=== PATIENT | male | born 1955 | race Caucasian/White ===

== ENCOUNTER 2021-04-13 07:50 | Observation (INO) | payer BC ==
[2021-04-13] MEDS ORDERED: ASPIRIN 81 MG PO STA (08:10)
[2021-04-13] MEDS ORDERED: NITROGLYCERIN OINT 1 INCH/GM PACKET TOPICAL STA (08:10)
[2021-04-13] MEDS ORDERED: LABETALOL 5 MG/ML VIAL MDV IVP STA (08:11)
[2021-04-13 08:36] LABS: Basophils % (A) 1 %; Eosinophils # (A) 0.1 k/uL (0-0.7); Eosinophils % (A) 2 %; HCT 48.1 % (39.0-53.0); HGB 16.5 gm/dL (13.0-17.5); Lymphocytes # (A) 1.6 k/uL (1.0-4.8); Lymphocytes % (A) 23 %; MCHC 34.4 g/dL (31.0-37.0); MCV 93.1 fL (80.0-100.0); Mean Platelet Volume 6.9; Monocytes # (A) 0.4 k/uL (0-1.0); Monocytes % (A) 6 %; Neutrophils # (A) 4.6 k/uL (1.3-7.7); Neutrophils % (A) 67 %; Platelet Count 358 k/uL (150-450); RBC 5.17 m/uL (4.30-5.90); RDW 13.4 % (11.5-15.5); WBC 6.9 k/uL (3.8-10.6)
[2021-04-13 08:42] LABS: ALT 40 U/L (4-49); AST 36 U/L (17-59); African American GFR (CKD) >90 (>60 ml/min/1.73 sqM); Albumin 4.8 g/dL (3.5-5.0); Alkaline Phosphatase 87 U/L (38-126); Anion Gap 11 mmol/L; Blood Urea Nitrogen 14 mg/dL (9-20); Calcium 9.7 mg/dL (8.4-10.2); Carbon Dioxide 22 mmol/L (22-30); Chloride 106 mmol/L (98-107); Glucose 132 mg/dL (74-99); Magnesium 2.1 mg/dL (1.6-2.3); Non-African American GFR(CKD) >90 (>60 ml/min/1.73 sqM); Potassium 4.5 mmol/L (3.5-5.1); Sodium 139 mmol/L (137-145); Total Bilirubin 0.6 mg/dL (0.2-1.3); Total Protein 7.7 g/dL (6.3-8.2)
--- NOTE | 2021-04-13 08:42 | XR ---
EXAMINATION TYPE: XR chest 2V DATE OF EXAM: 04/13/2021 COMPARISON: NONE TECHNIQUE: PA and lateral views submitted. HISTORY: Chest pain FINDINGS: The lungs are clear and there is no pneumothorax, pleural effusion, or focal pneumonia. Heart size normal. No overt failure. Mild hyperinflation. Arthropathy shoulders. Biapical pleural thickening. IMPRESSION: 1. No acute process.
[2021-04-13 08:45] LABS: Partial Thromboplastin Time 25.1 sec (22.0-30.0); Prothrombin Time 10.3 sec (9.0-12.0)
[2021-04-13] MEDS ORDERED: ACETAMINOPHEN TAB 500 MG TAB PO STA (09:57)
[2021-04-13] MEDS ORDERED: NITROGLYCERIN SL TABS 0.4 MG TAB SUBLINGUAL PRN (10:15)
--- NOTE | 2021-04-13 10:15 | ED ---
Chest Pain HPI - General Chief Complaint: Chest Pain Stated Complaint: Chest pain Time Seen by Provider: 04/13/21 08:02 Source: patient Mode of arrival: ambulatory Limitations: no limitations - History of Present Illness Initial Comments: This 65-year-old male presents with a complaint of some chest pain. He describes it as a midsternal tightness. He also has had some left hand tingling and numbness. He denies any radiation of the pain. He also denies any shortness of breath and cough or fever. He states that he had somewhat similar symptoms over a year ago when he had likely COVID. He had a stress test at that time which was negative. He denies any known cardiac disease. There is no leg pain or swelling or history DVT or PE. No other complaints or modifying factors. He states that the symptoms came on just this past evening. He also relates that his blood pressure was elevated today at approximately 184/97. He denies having a history of known hypertension. He does relate that he has been told that he has high cholesterol but does not take any medications for this. He does not follow up with the primary physician regularly. - Related Data Home Medications Medication Instructions Recorded Confirmed Aspirin 325 mg PO DAILY PRN 04/13/21 04/13/21 Multivitamins, Thera [Multivitamin 1 tab PO DAILY 04/13/21 04/13/21 (formulary)] [place]-3 Fatty Acids/Fish Oil [Fish 1 cap PO DAILY 04/13/21 04/13/21 Oil 1,000 mg Softgel] Zinc 50 mg PO DAILY 04/13/21 04/13/21 Allergies Allergy/AdvReac Type Severity Reaction Status Date / Time No Known Allergies Allergy Verified 04/13/21 08:42 Review of Systems ROS Statement: Those systems with pertinent positive or pertinent negative responses have been documented in the HPI. ROS Other: All systems not noted in ROS Statement are negative. Past Medical History Past Medical History: No Reported History History of Any Multi-Drug Resistant Organisms: None Reported Past Surgical History: No Surgical Hx Reported Past Psychological History: No Psychological Hx Reported Smoking Status: Never smoker Past Alcohol Use History: Occasional Past Drug Use History: None Reported General Exam - General Exam Comments Initial Comments: GENERAL: The patient is well nourished and well hydrated. VITAL SIGNS: Heart rate, blood pressure, respiratory rate reviewed as recorded in nurse's notes. EYES: Pupils are round and reactive. Extraocular movements are intact. No conjunctival / lid redness or swelling. ENT: No external evidence of injury, swelling, or ecchymosis. Airway is patent. Throat is clear. NECK: Nontender. No swelling or evidence of injury. No subcutaneous emphysema. Trachea is midline. No thyroid mass. HEART: Regular rate and rhythm. Good peripheral pulses. LUNGS/CHEST: Breath sounds clear and equal bilaterally. No rales, rhonchi, or wheezes. No ecchymosis, subcutaneous emphysema, or tenderness. ABDOMEN: Abdomen soft without tenderness. No palpable masses or organomegaly. No peritoneal signs. No abdominal wall swelling or ecchymosis. EXTREMITIES: No extremity tenderness. Normal muscle tone and function. No thoracolumbar tenderness. NEUROLOGIC: Sensation is grossly intact. Cranial nerve exam reveals face is symmetrical, tongue is midline, speech is clear. SKIN: No abrasions or ecchymosis is noted. No induration or masses noted. PSYCHIATRIC: Alert and oriented. Appropriate behavior and judgment. Limitations: no limitations Course Vital Signs 04/13/21 04/13/21 07:52 08:54 Temperature 98.1 F Pulse Rate 75 71 Respiratory 20 18 Rate Blood Pressure 160/91 146/93 O2 Sat by Pulse 98 97 Oximetry Chest Pain MDM - MDM The patient was seen and examined. All diagnostics were reviewed. The had a EKG which shows a normal sinus rhythm at a rate of 80. There is no acute ST-T wave changes identified. The NH intervals 144, QRS duration is 86, and the QTC intervals 424. The patient was placed on a funeral workers no ectopy is identified. He took an aspirin just this morning prior to arrival and therefore additional aspirin is not given. He is placed on Nitropaste as well as received labetalol 20 mg IV. His blood pressure was elevated but did come down nicely with the medications. He is feeling well on recheck. The chest x-ray does not show any acute abnormalities. The cardiac profile laboratory is all within normal limits. Is felt as though he benefit from admission to observation for further cardiac evaluation. Patient is agreeable. Case is discussed with Dr. Lemus who is agreeable with admission. Disposition Clinical Impression: Chest pain, Unstable angina, Hypertension Disposition: ADMITTED IP TO THIS HOSP Condition: Fair Is patient prescribed a controlled substance at d/c from ED?: No Referrals: None,Stated [Primary Care Provider] - 1-2 days Time of Disposition: 10:14 Decision Date: 04/13/21 Decision Time: 10:14
[2021-04-13] MEDS: ENOXAPARIN 40 MG/0.4 ML SYRINGE SQ SCH (10:38)
[2021-04-13] MEDS ORDERED: ACETAMINOPHEN TAB 325 MG TAB PO PRN ×2 (13:39→14:39)
[2021-04-13] MEDS ORDERED: NALOXONE 0.4 MG/ML 1 ML VIAL IV PRN (13:39)
--- NOTE | 2021-04-13 13:53 | ECHOF ---
Referral Reason:cp MEASUREMENTS -------- HEIGHT: 180.3 cm WEIGHT: 92.1 kg BP: RVIDd: 2.4 cm (< 3.3) IVSd: 1.1 cm (0.6 - 1.1) LVIDd: 4.4 cm (3.9 - 5.3) LVPWd: 1.1 cm (0.6 - 1.1) IVSs: 1.7 cm LVIDs: 1.9 cm LVPWs: 1.7 cm Ao Diam: 3.2 cm (2.0 - 3.7) AV Cusp: 2.3 cm (1.5 - 2.6) LA Diam: 3.2 cm (2.7 - 3.8) MV EXCURSION: 17.701 mm (> 18.000) MV EF SLOPE: 99 mm/s (70 - 150) EPSS: 0.8 cm MV E Chapin: 0.58 m/s MV DecT: 270 ms MV A [place]: 0.69 m/s MV E/A Ratio: 0.85 RAP: 5.00 mmHg RVSP: 11.86 mmHg FINDINGS -------- This was a technically good study. The left ventricular size is normal. Left ventricular wall thickness is normal. Overall left vent ricular systolic function is normal with, an EF between 55 - 60 %. The right ventricle is normal in size. The left atrial size is normal. The right atrial size is normal. Interatrial and interventricular septum intact. The aortic valve is trileaflet and appears structurally normal. The mitral valve is normal. There is trace mitral regurgitation. The tricuspid valve appears structurally normal. Trace tricuspid regurgitation present. Right trey tricular systolic pressure is normal at < 35 mmHg. There is no pulmonic regurgitation present. The aortic root size is normal. Normal inferior vena cava with normal inspiratory collapse consistent with estimated right atrial pre ssure of 5 mmHg. There is no pericardial effusion. CONCLUSIONS -------- 1. The left ventricular size is normal. 2. Left ventricular wall thickness is normal. 3. Overall left ventricular systolic function is normal with, an EF between 55 - 60 %. 4. There is trace mitral regurgitation. 5. Trace tricuspid regurgitation present. 6. There is no pericardial effusion. RETAIL INTERIOR DESIGNER: Gissel Mary RDCS
--- NOTE | 2021-04-13 14:29 | P.CRDCN ---
History of Present Illness History of present illness: HISTORY OF PRESENTING ILLNESS This is a pleasant 65-year-old male past medical history significant for previous nicotine dependence. 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 We have been asked to see in consultation for chest pain. Last night after getting home from [place] he started feeling a tight sensation in the midsternal region. It radiated out across his entire chest. It felt tight and he felt funny according to him. He checked his blood pressure and it was 180s systolic. He has not previously been diagnosed with hypertension and does not take any medications on a daily basis. He does state that in 2019 when he thinks he had Covid he went to the emergency department and at that time his blood pressure was also elevated however he has a blood pressure cuff that he checks daily at home and states that it typically runs normal. He has had a couple readings above 140 systolic but this is been under stressful situation. He is not currently taking any antihypertensives. On arrival his blood pressure was 160/91 he was given IV labetalol and current blood pressure is 124/75. He has had no further symptoms of chest discomfort. EKG reveals sinus mechanism with no acute ST or T wave abnormalities noted. Chest x-ray is negative for an acute cardiopulmonary process. Laboratory data reviewed, CBC unremarkable, sodium 139, potassium 4.5, creatinine 0.89 and magnesium 2.1. Cardiac enzymes negative 2. Echocardiogram obtained reveals preserved LV systolic function with ejection fraction 55-60%. The patient states he did undergo a stress test approximately 6 weeks ago in [place] that he states was normal. He states he walked on the treadmill for 7 minutes. REVIEW OF SYSTEMS At the time of my exam: CONSTITUTIONAL: Denies fever or chills. CARDIOVASCULAR: Denies chest pain, shortness of breath, orthopnea, PND or palpitations. RESPIRATORY: Denies cough. GASTROINTESTINAL: Denies abdominal pain, diarrhea, constipation, nausea or vomiting. MUSCULOSKELETAL: Denies myalgias. NEUROLOGIC: Denies numbness, tingling, headache or weakness. ENDOCRINE: Denies fatigue, weight change, polydipsia or polyurina. GENITOURINARY: Denies burning, hematuria or urgency with micturation. HEMATOLOGIC: Denies history of anemia or bleeding. PHYSICAL EXAMINATION CONSTITUTIONAL: No apparent distress. HEENT: Head is normocephalic. Pupils are equal, round. Sclerae anicteric. Mucous membranes of the mouth are moist. No JVD. No carotid bruit. CHEST EXAMINATION: Lungs are clear to auscultation. No chest wall tenderness is noted on palpation or with deep breathing. HEART EXAMINATION: Regular rate and rhythm. S1, S2 heard. No murmurs, gallops or rub. ABDOMEN: Soft, nontender. EXTREMITIES: 2+ peripheral pulses, no lower extremity edema and no calf tenderness. NEUROLOGIC EXAMINATION: Patient is awake, alert and oriented x3. ASSESSMENT Chest pain Hypertension Former nicotine dependence PLAN Continue to obtain serial cardiac enzymes to rule out an acute event. Increase activity and assess for further chest pain. Recommend aspirin 81 mg daily along with metoprolol 25 mg twice a day. He has been advised to check his blood pressure regularly at home. If he remains stable overnight he can likely be discharged home tomorrow morning. Follow-up in the office with Dr. Suazo next week Friday for further evaluation of chest pain. If he has further symptoms of chest discomfort he will likely pursue cardiac catheterization. Thank you kindly for this consultation. Nurse Practitioner note has been reviewed, I agree with a documented findings and plan of care. Patient was seen and examined. Past Medical History Past Medical History: No Reported History History of Any Multi-Drug Resistant Organisms: None Reported Past Surgical History: No Surgical Hx Reported Past Psychological History: No Psychological Hx Reported Smoking Status: Never smoker Past Alcohol Use History: Occasional Past Drug Use History: None Reported Medications and Allergies Home Medications Medication Instructions Recorded Confirmed Type Aspirin 325 mg PO DAILY PRN 04/13/21 04/13/21 History Multivitamins, Thera [Multivitamin 1 tab PO DAILY 04/13/21 04/13/21 History (formulary)] [place]-3 Fatty Acids/Fish Oil [Fish 1 cap PO DAILY 04/13/21 04/13/21 History Oil 1,000 mg Softgel] Zinc 50 mg PO DAILY 04/13/21 04/13/21 History Allergies Allergy/AdvReac Type Severity Reaction Status Date / Time No Known Allergies Allergy Verified 04/13/21 08:42 Physical Exam Vitals: Vital Signs Temp Pulse Resp BP Pulse Ox 04/13/21 13:55 98.1 F 62 18 126/74 97 04/13/21 12:00 62 18 126/74 97 04/13/21 11:00 65 18 97 04/13/21 10:00 67 18 146/87 97 04/13/21 09:00 71 18 97 04/13/21 08:54 71 18 146/93 97 04/13/21 07:52 98.1 F 75 20 160/91 98 Intake and Output 04/12/21 04/13/21 04/13/21 22:59 06:59 14:59 Other: Weight 92.079 kg Results 04/13/21 08:20 04/13/21 08:20 Cardiac Enzymes 04/13/21 04/13/21 04/13/21 Range/Units 08:20 08:20 11:44 AST 36 (17-59) U/L Troponin I <0.012 <0.012 (0.000-0.034) ng/mL Coagulation 04/13/21 Range/Units 08:20 PT 10.3 (9.0-12.0) sec APTT 25.1 (22.0-30.0) sec CBC 04/13/21 Range/Units 08:20 WBC 6.9 (3.8-10.6) k/uL RBC 5.17 (4.30-5.90) m/uL Hgb 16.5 (13.0-17.5) gm/dL Hct 48.1 (39.0-53.0) % Plt Count 358 (150-450) k/uL Comprehensive Metabolic Panel 04/13/21 Range/Units 08:20 Sodium 139 (137-145) mmol/L Potassium 4.5 (3.5-5.1) mmol/L Chloride 106 (98-107) mmol/L Carbon Dioxide 22 (22-30) mmol/L BUN 14 (9-20) mg/dL Creatinine 0.89 (0.66-1.25) mg/dL Glucose 132 H (74-99) mg/dL Calcium 9.7 (8.4-10.2) mg/dL AST 36 (17-59) U/L ALT 40 (4-49) U/L Alkaline Phosphatase 87 (38-126) U/L Total Protein 7.7 (6.3-8.2) g/dL Albumin 4.8 (3.5-5.0) g/dL Current Medications Generic Name Dose Route Start Last Admin Trade Name Freq PRN Reason Stop Dose Admin Acetaminophen 650 mg 04/13/21 13:39 Acetaminophen Tab 325 Mg Tab PO Q6HR PRN Mild Pain or Fever > 100.5 Aspirin 81 mg 04/14/21 09:00 Aspirin 81 Mg PO DAILY [facility] Atorvastatin Calcium 80 mg 04/13/21 21:00 Atorvastatin 80 Mg Tab PO HS [facility] Enoxaparin Sodium 40 mg 04/13/21 10:30 04/13/21 10:38 Enoxaparin 40 Mg/0.4 Ml Syringe SQ 40 mg DAILY [facility] Administration Metoprolol Tartrate 25 mg 04/13/21 21:00 Metoprolol Tartrate 25 Mg Tab PO BID [facility] Multivitamins 1 each 04/14/21 09:00 Multivitamins, Thera 1 Each Tab PO DAILY [facility] Naloxone HCl 0.2 mg 04/13/21 13:39 Naloxone 0.4 Mg/Ml 1 Ml Vial IV Q2M PRN Opioid Reversal Nitroglycerin 0.4 mg 04/13/21 10:15 Nitroglycerin Sl Tabs 0.4 Mg Tab SUBLINGUAL Q5M PRN Chest Pain Nitroglycerin 1 inch 04/13/21 13:00 Nitroglycerin Oint 1 Inch/Gm Packet TOPICAL Q6HR [facility] Zinc Sulfate 220 mg 04/14/21 09:00 Zinc Sulfate 220 Mg Cap PO DAILY [facility] Intake and Output 04/12/21 04/13/21 04/13/21 22:59 06:59 14:59 Other: Weight 92.079 kg Patient Weight 04/14/21 06:59 Weight 92.079 kg 04/13/21 08:20 04/13/21 08:20
[2021-04-13] MEDS: NITROGLYCERIN OINT 1 INCH/GM PACKET TOPICAL SCH ×3 (14:56→23:56)
--- NOTE | 2021-04-13 16:13 | P.HPIM ---
History of Present Illness H&P Date: 04/13/21 Chief Complaint: chest pressure, hypertension 65-year-old man with a medical history of prior nicotine abuse presented with chest pressure. Patient says that starting yesterday he noticed some chest pressure and took his blood pressure noticed it was very high. At the time that he had his chest pressure he took one aspirin which helped his pain, then later on that day he expanse another episode while doing some work in the kitchen. The following morning, he had another episode of chest pressure and took his blood pressure and again it was very high in the 180s. Given these constellation of symptoms, patient presented for further evaluation the emergency room to be extra careful. Patient denies sweats, nausea, vomiting, fevers, chills, palpitations, chest pain, syncope, angina, dyspnea, cough, abdominal pain, diarrhea, constipation, dysuria, dyschezia, numbness/weakness of extremity is. He does note some tingling in his left arm. Patient previously had a stress test, nuclear with exercise, which was noted to be negative for inducible ischemia. It's unclear whether this stress test was in August 2019 or 6 weeks ago or both, patient told me it was August 2019. The test was done and [facility] facility, and documentation will be obtained for review. Patient has been hemodynamically stable, hypertensive, afebrile. Troponins thus far been negative. EKG was nonischemic and in normal sinus rhythm. Patient was started on aspirin and metoprolol, as well as amlodipine for blood pressure. Review of Systems All Systems reviewed and pertinent positives and negatives noted in HPI, all other symptoms are negative Past Medical History Past Medical History: No Reported History History of Any Multi-Drug Resistant Organisms: None Reported Past Surgical History: No Surgical Hx Reported Past Psychological History: No Psychological Hx Reported Smoking Status: Never smoker Past Alcohol Use History: Occasional Past Drug Use History: None Reported Medications and Allergies Home Medications Medication Instructions Recorded Confirmed Type Aspirin 325 mg PO DAILY PRN 04/13/21 04/13/21 History Multivitamins, Thera [Multivitamin 1 tab PO DAILY 04/13/21 04/13/21 History (formulary)] [place]-3 Fatty Acids/Fish Oil [Fish 1 cap PO DAILY 04/13/21 04/13/21 History Oil 1,000 mg Softgel] Zinc 50 mg PO DAILY 04/13/21 04/13/21 History Allergies Allergy/AdvReac Type Severity Reaction Status Date / Time No Known Allergies Allergy Verified 04/13/21 08:42 Physical Exam Osteopathic Statement: *. No significant issues noted on an osteopathic structural exam other than those noted in the History and Physical/Consult. Vitals: Vital Signs Temp Pulse Resp BP Pulse Ox 04/13/21 13:55 98.1 F 62 18 126/74 97 04/13/21 12:00 62 18 126/74 97 04/13/21 11:00 65 18 97 04/13/21 10:00 67 18 146/87 97 04/13/21 09:00 71 18 97 04/13/21 08:54 71 18 146/93 97 04/13/21 07:52 98.1 F 75 20 160/91 98 Intake and Output 04/13/21 04/13/21 04/13/21 06:59 14:59 22:59 Other: # Voids 0 Weight 92.079 kg Gen: awake, alert HEENT: normocephalic, atraumatic, good hearing acuity, moist mucous membranes Resp: good air exchange, breathing comfortably with no accessory muscle use, clear to auscultation bilaterally CVS: good distal perfusion x 4, regular rate and rhythm without murmurs GI: soft, NTTP, ND : no SPT, no CVAT, alfonso catheter not present MSK: no pitting edema, no clubbing Neuro: non-focal, moving all extremities Psych: cooperative, euthymic mood Results CBC & Chem 7: 04/13/21 08:20 04/13/21 08:20 Labs: Abnormal Lab Results - Last 24 Hours (Table) 04/13/21 Range/Units 08:20 Glucose 132 H (74-99) mg/dL Assessment and Plan Assessment: Chest pressure Hypertensive urgency -Admit to observation, telemetry -Cardiology consult -Troponins of trended negative, EKG was nonischemic -Continue to monitor for chest pressure/pain as exercise/activity is increased -Blood pressure management: Amlodipine 5 mg, metoprolol 25 mg twice a day -Echocardiogram was reviewed and was normal Overweight -Diet and exercise counseling -Outpatient PCP follow-up Patient is a full code DVT prophylaxis with enoxaparin
[2021-04-13] MEDS: amLODIPine 5 MG TAB PO SCH (16:33)
[2021-04-13] MEDS ORDERED: METOPROLOL TARTRATE 25 MG TAB PO SCH (21:00)
[2021-04-13] MEDS ORDERED: ATORVASTATIN 80 MG TAB PO SCH (21:00)
[2021-04-13] MEDS: METOPROLOL TARTRATE 25 MG TAB PO SCH (21:38)
[2021-04-14] MEDS: NITROGLYCERIN OINT 1 INCH/GM PACKET TOPICAL SCH ×2 (05:23→11:08)
[2021-04-14 07:05] LABS: African American GFR (CKD) >90 (>60 ml/min/1.73 sqM); Anion Gap 7 mmol/L; Blood Urea Nitrogen 14 mg/dL (9-20); Calcium 9.4 mg/dL (8.4-10.2); Carbon Dioxide 25 mmol/L (22-30); Chloride 107 mmol/L (98-107); Glucose 114 mg/dL (74-99); Magnesium 2.3 mg/dL (1.6-2.3); Non-African American GFR(CKD) 85 (>60 ml/min/1.73 sqM); Potassium 4.8 mmol/L (3.5-5.1); Sodium 139 mmol/L (137-145)
[2021-04-14 07:36] VITALS: BP 134/71; PULSE 54; RESP 18; TEMP 97.6
[2021-04-14] MEDS: METOPROLOL TARTRATE 25 MG TAB PO SCH ×2 (07:47→07:55)
[2021-04-14] MEDS: amLODIPine 5 MG TAB PO SCH (07:48)
[2021-04-14] MEDS: ENOXAPARIN 40 MG/0.4 ML SYRINGE SQ SCH (07:48)
[2021-04-14 08:53] LABS: Basophils # (A) 0.05 X 10*3/uL (0.00-0.10); Basophils % (A) 0.7 %; Eosinophils # (A) 0.27 X 10*3/uL (0.04-0.35); Eosinophils % (A) 3.6 %; HCT 44.4 % (39.6-50.0); HGB 14.4 g/dL (13.0-17.0); Lymphocytes # (A) 2.35 X 10*3/uL (0.90-5.00); Lymphocytes % (A) 31.1 %; MCH 30.7 pg (27.0-32.0); MCHC 32.4 g/dL (32.0-37.0); MCV 94.7 fL (80.0-97.0); Mean Platelet Volume 9.5 fL (9.5-12.2); Monocytes # (A) 0.84 X 10*3/uL (0.20-1.00); Monocytes % (A) 11.1 %; Neutrophils # (A) 4.04 X 10*3/uL (1.80-7.70); Neutrophils % (A) 53.4 %; Platelet Count 288 X 10*3/uL (140-440); RBC 4.69 X 10*6/uL (4.40-5.60); RDW 13.2 % (11.5-14.5); WBC 7.56 X 10*3/uL (4.50-10.00)
[2021-04-14] MEDS ORDERED: ASPIRIN 325 MG TAB PO SCH (09:00)
[2021-04-14] MEDS ORDERED: MULTIVITAMINS, THERA 1 EACH TAB PO SCH (09:00)
[2021-04-14] MEDS ORDERED: ASPIRIN 81 MG PO SCH (09:00)
[2021-04-14] MEDS ORDERED: NON FORMULARY DRUG (Omega-3 Fatty Acids/Fish Oil [Fish Oil 1,000 Mg Softgel] 1 EACH Capsul PO SCH (09:00)
[2021-04-14] MEDS ORDERED: ZINC SULFATE 220 MG CAP PO SCH (09:00)
--- NOTE | 2021-04-14 12:16 | P.PN ---
Subjective Progress Note Date: 04/14/21 This is a pleasant 65-year-old male past medical history significant for previous nicotine dependence. 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 We have been asked to see in consultation for chest pain. evening after getting home from [place] he started feeling a tight sensation in the midsternal region. It radiated out across his entire chest. It felt tight and he felt funny according to him. He checked his blood pressure and it was 180s systolic. He has not previously been diagnosed with hypertension and does not take any medications on a daily basis. He does state that in 2018 when he thinks he had Covid he went to the emergency department and at that time his blood pressure was also elevated however he has a blood pressure cuff that he checks daily at home and states that it typically runs normal. He has had a couple readings above 140 systolic but this is been under stressful situation. He is not c urrently taking any antihypertensives. On arrival his blood pressure was 160/91 he was given IV labetalol and current blood pressure is 124/75. He has had no further symptoms of chest discomfort. EKG reveals sinus mechanism with no acute ST or T wave abnormalities noted. Chest x-ray is negative for an acute cardiopulmonary process. Laboratory data reviewed, CBC unremarkable, sodium 139, potassium 4.5, creatinine 0.89 and magnesium 2.1. Cardiac enzymes negative 2. Echocardiogram obtained reveals preserved LV systolic function with ejection fraction 55-60%. The patient states he did undergo a stress test approximately 6 weeks ago in [place] that he states was normal. He states he walked on the treadmill for 7 minutes. 04/14/2021 Patient was seen and examined resting completely in bed. He's been initiated on amlodipine 5 mg by mouth daily, aspirin 81 mg daily, atorvastatin 80 mg by mouth daily at bedtime and metoprolol 25 mg by mouth twice a day. His morning dose of metoprolol was held by nursing staff due to heart rate in the 50s. Upon examination the patient is feeling well. He's had no further complaints of chest discomfort. Blood pressure is much better controlled in the 130s. Objective - Vital Signs Vital signs: Vital Signs Temp 97.6 F 04/14/21 07:35 Pulse 54 L 04/14/21 07:35 Resp 18 04/14/21 07:35 BP 134/71 04/14/21 07:35 Pulse Ox 97 04/14/21 07:35 Intake & Output 04/13/21 04/14/21 04/14/21 18:59 06:59 18:59 Weight 92.079 kg Other: Voiding Method Toilet Toilet Toilet # Voids 0 1 - Exam PHYSICAL EXAMINATION: HEENT: Head is atraumatic, normocephalic. Pupils equal, round. Neck is supple. There is no elevated jugular venous pressure. HEART EXAMINATION: Heart sounds regular, S1 and S2 normal. No murmur or gallop heard. CHEST EXAMINATION: Lungs are clear to auscultation and precussion. No chest wall tenderness is noted on palpation or with deep breathing. ABDOMEN: Soft, nontender. Bowel sounds are heard. No organomegaly noted. EXTREMITIES: 2+ peripheral pulses with no evidence of peripheral edema and no calf tenderness noted. NEUROLOGIC patient is awake, alert and oriented x3. . - Labs CBC & Chem 7: 04/14/21 06:20 04/14/21 06:20 Labs: Abnormal Lab Results - Last 24 Hours (Table) 04/14/21 Range/Units 06:20 Glucose 114 H (74-99) mg/dL Assessment and Plan Assessment: #1 symptoms of chest tightness, acute coronary event has been ruled out, troponins have been negative 3. #2 hypertension #3 hyperlipidemia #4 former nicotine dependence Plan: From cardiology's perspective medications were reviewed we will decrease metoprolol to 12.5 mg by mouth twice a day. Continue atorvastatin, aspirin and amlodipine. From our standpoint the patient may be discharged home and follow- up with Dr. CHARLI Suazo on April 20 in the office. The above dictated assessment and findings were discussed with signing physician. The impression and plan of care have been directed as dictated. Portia Smith, Nurse Practitioner, acting as scribe for signing physician.
--- NOTE | 2021-04-14 14:41 | P.DS ---
Providers Date of admission: 04/13/21 10:15 Expected date of discharge: 04/14/21 Attending physician: Suleman Max Consults: 04/13/21 10:15 Consult Physician Urgent Consulting Provider: Leonel Moralez Consult Reason/Comments: cp, htn Do you want consulting provider notified?: Yes Primary care physician: Stated None Hospital Course: Chest pressure Hypertensive urgency -Admitted to observation, telemetry. Cardiology consulted. Trops were negative, EKG non-ischemic. Echo was normal. BP was managed with amlodipine and metoprolol. Pt was started on statin. He was d/c'd home with instructions to f/u with PCP and cardiology. BPs at discharge were much better controlled, in the 130s/80s. Overweight -Diet and exercise counseling given -Outpatient PCP follow-up advised Assessment: Gen: awake, alert HEENT: normocephalic, atraumatic, good hearing acuity, moist mucous membranes Resp: good air exchange, breathing comfortably with no accessory muscle use CVS: good distal perfusion x 4, GI: soft, NTTP, ND : no SPT, no CVAT, alfonso catheter not present MSK: no pitting edema, no clubbing Neuro: non-focal, moving all extremities Psych: cooperative, euthymic mood Patient Condition at Discharge: Good Plan - Discharge Summary Discharge Rx Participant: No New Discharge Prescriptions: New amLODIPine [Norvasc] 5 mg PO DAILY #30 tab Atorvastatin [Lipitor] 80 mg PO HS #30 tab Metoprolol Tartrate [Lopressor] 12.5 mg PO BID #60 tab Continue Roby-3 Fatty Acids/Fish Oil [Fish Oil 1,000 mg Softgel] 1 cap PO DAILY Zinc 50 mg PO DAILY Multivitamins, Thera [Multivitamin (formulary)] 1 tab PO DAILY Changed Aspirin 81 mg PO DAILY #30 Discharge Medication List Multivitamins, Thera [Multivitamin (formulary)] 1 tab PO DAILY 04/13/21 [History] Roby-3 Fatty Acids/Fish Oil [Fish Oil 1,000 mg Softgel] 1 cap PO DAILY 04/13/21 [History] Zinc 50 mg PO DAILY 04/13/21 [History] Aspirin 81 mg PO DAILY #30 04/14/21 [Rx] Atorvastatin [Lipitor] 80 mg PO HS #30 tab 04/14/21 [Rx] Metoprolol Tartrate [Lopressor] 12.5 mg PO BID #60 tab 04/14/21 [Rx] amLODIPine [Norvasc] 5 mg PO DAILY #30 tab 04/14/21 [Rx] Follow up Appointment(s)/Referral(s): Agustin Suazo MD [STAFF PHYSICIAN] - 04/20/21 8:45 am None,Stated [Primary Care Provider] - 1-2 days Patient Instructions/Handouts: Chest Pain (DC) Discharge Disposition: HOME SELF-CARE
[2021-04-14 15:30] LABS: Chol/HDL Ratio 5.31; Cholesterol 186 mg/dL (0-200); LDL Cholesterol,Calculated 121.6 mg/dL (0.0-131.0)
[2021-04-14] MEDS ORDERED: METOPROLOL TARTRATE 12.5 MG TAB PO SCH (21:00)
== END 2021-04-14 13:30 | disposition home or self-care (01) ==
LOC: EC 07:50 → 6NMEDSUR 10:15
PROVIDERS: ADMIT Internal Medicine; ATTEND Internal Medicine
DX: R07.89 Other chest pain (principal); I16.0 Hypertensive urgency; I10 Essential (primary) hypertension; E78.5 Hyperlipidemia, unspecified; M19.012 Primary osteoarthritis, left shoulder; M19.011 Primary osteoarthritis, right shoulder; R20.2 Paresthesia of skin; R20.0 Anesthesia of skin; E78.00 Pure hypercholesterolemia, unspecified; E66.3 Overweight; Z68.28 Body mass index [BMI] 28.0-28.9, adult; Z79.82 Long term (current) use of aspirin; Z79.899 Other long term (current) drug therapy; Z87.891 Personal history of nicotine dependence; Z71.3 Dietary counseling and surveillance
CPT/HCPCS: 96372; 96374; 99285; 36415; 93005; 93306; 80061; 80053; 80048; 83735 ×2; 84484; 85025 ×2; 85610; 85730; 71046; G0378 ×2; J1650

== ENCOUNTER 2021-11-18 21:21 | Emergency (ER) | payer BC ==
[2021-11-18 21:32] VITALS: TEMP 98.9
[2021-11-18 22:11] LABS: Basophils % (A) 0 %; Eosinophils # (A) 0.1 k/uL (0-0.7); Eosinophils % (A) 1 %; HCT 46.4 % (39.0-53.0); HGB 15.5 gm/dL (13.0-17.5); Lymphocytes # (A) 2.3 k/uL (1.0-4.8); Lymphocytes % (A) 28 %; MCH 30.8 pg (25.0-35.0); MCHC 33.4 g/dL (31.0-37.0); MCV 92.2 fL (80.0-100.0); Monocytes # (A) 0.4 k/uL (0-1.0); Monocytes % (A) 5 %; Neutrophils # (A) 5.1 k/uL (1.3-7.7); Neutrophils % (A) 64 %; Platelet Count 312 k/uL (150-450); RBC 5.03 m/uL (4.30-5.90); RDW 13.3 % (11.5-15.5); WBC 8.1 k/uL (3.8-10.6)
--- NOTE | 2021-11-18 22:14 | XR ---
EXAMINATION TYPE: XR chest 2V DATE OF EXAM: 11/18/2021 COMPARISON: 04/13/2021 HISTORY: Chest pain TECHNIQUE: FINDINGS: Heart is normal. Lungs are clear. Diaphragm is normal. There are chest leads. Bony thorax i s intact. IMPRESSION: Normal chest. No change
[2021-11-18 22:22] LABS: ALT 29 U/L (4-49); AST 29 U/L (17-59); African American GFR (CKD) >90 (>60 ml/min/1.73 sqM); Albumin 4.5 g/dL (3.5-5.0); Alkaline Phosphatase 68 U/L (38-126); Anion Gap 12 mmol/L; Blood Urea Nitrogen 20 mg/dL (9-20); Calcium 9.2 mg/dL (8.4-10.2); Carbon Dioxide 22 mmol/L (22-30); Chloride 105 mmol/L (98-107); Glucose 123 mg/dL (74-99); Lipase 49 U/L (23-300); Magnesium 2.2 mg/dL (1.6-2.3); Non-African American GFR(CKD) 85 (>60 ml/min/1.73 sqM); Potassium 4.4 mmol/L (3.5-5.1); Sodium 139 mmol/L (137-145); Total Bilirubin 0.6 mg/dL (0.2-1.3); Total Protein 7.8 g/dL (6.3-8.2)
--- NOTE | 2021-11-18 22:24 | ED ---
Chest Pain HPI - General Chief Complaint: Chest Pain Stated Complaint: Chest Pain, Left Hand Numbness Time Seen by Provider: 11/18/21 21:42 Source: patient, RN notes reviewed, old records reviewed Mode of arrival: wheelchair Limitations: no limitations - History of Present Illness Initial Comments: This is a 66-year-old male to the ER today. Patient presents today for evaluation of chest pain. Patient does suffer from medical history of high blood pressure. He has no traumas no travel history no sick contacts no fevers no cough no congestion. Patient Dese with chest pain left arm left leg pain that started prior to arrival. Patient did take his blood pressure was elevated made her concerned and comes DF for evaluation MD Complaint: chest pain -: hour(s) Onset: during rest Pain Location: substernal, left chest Pain Radiation: LUE Severity: moderate Severity scale (1-10): 4 Quality: tightness Consistency: constant Improves With: nothing Worsens With: nothing Anginal Symptoms: other (none) Other Symptoms: other (none) Treatments Prior to Arrival: none - Related Data Home Medications Medication Instructions Recorded Confirmed Multivitamins, Thera [Multivitamin 1 tab PO DAILY 04/13/21 04/13/21 (formulary)] [place]-3 Fatty Acids/Fish Oil [Fish 1 cap PO DAILY 04/13/21 04/13/21 Oil 1,000 mg Softgel] Zinc 50 mg PO DAILY 04/13/21 04/13/21 Previous Rx's Medication Instructions Recorded Aspirin 81 mg PO DAILY #30 04/14/21 Atorvastatin [Lipitor] 80 mg PO HS #30 tab 04/14/21 Metoprolol Tartrate [Lopressor] 12.5 mg PO BID #60 tab 04/14/21 amLODIPine [Norvasc] 5 mg PO DAILY #30 tab 04/14/21 Allergies Allergy/AdvReac Type Severity Reaction Status Date / Time No Known Allergies Allergy Verified 11/18/21 21:32 Review of Systems ROS Statement: Those systems with pertinent positive or pertinent negative responses have been documented in the HPI. ROS Other: All systems not noted in ROS Statement are negative. EKG Findings - EKG Comments: EKG Findings:: EKG shows sinus bradycardia 57 IA 141 QRS 92 QTC 392 Past Medical History Past Medical History: Hypertension History of Any Multi-Drug Resistant Organisms: None Reported Past Surgical History: No Surgical Hx Reported Past Psychological History: No Psychological Hx Reported Smoking Status: Never smoker Past Alcohol Use History: Occasional Past Drug Use History: None Reported General Exam General appearance: alert, in no apparent distress Head exam: Present: atraumatic, normocephalic, normal inspection Eye exam: Present: normal appearance, PERRL, EOMI. Absent: scleral icterus, conjunctival injection, periorbital swelling ENT exam: Present: normal exam, mucous membranes moist Neck exam: Present: normal inspection. Absent: tenderness, meningismus, lymphadenopathy Respiratory exam: Present: normal lung sounds bilaterally. Absent: respiratory distress, wheezes, rales, rhonchi, stridor Cardiovascular Exam: Present: regular rate, normal rhythm, normal heart sounds. Absent: systolic murmur, diastolic murmur, rubs, gallop, clicks GI/Abdominal exam: Present: soft, normal bowel sounds. Absent: distended, tenderness, guarding, rebound, rigid Extremities exam: Present: normal inspection, full ROM, normal capillary refill. Absent: tenderness, pedal edema, joint swelling, calf tenderness Back exam: Present: normal inspection Neurological exam: Present: alert, oriented X3, CN II-XII intact Psychiatric exam: Present: normal affect, normal mood Skin exam: Present: warm, dry, intact, normal color. Absent: rash Course Vital Signs 11/18/21 11/18/21 11/18/21 21:29 22:00 23:00 Temperature 98.9 F Pulse Rate 65 67 52 L Respiratory 18 16 16 Rate Blood Pressure 158/90 165/93 163/92 O2 Sat by Pulse 98 Oximetry 11/19/21 00:17 Temperature Pulse Rate 64 Respiratory 16 Rate Blood Pressure 145/84 O2 Sat by Pulse 95 Oximetry - Reevaluation(s) Reevaluation #1: 11/18/21 Medical record is reviewed Patient symptoms are improved here in the emergency department Patient informed results and questions answered Reevaluation #2: Studies Chest x-rays negative for acute disease Chest Pain MDM - MDM 66 male presented with chest pain atypical chest pain tonight. Patient has no current chest pain here in the ER feeling improved testing is normal patient can be discharged home Disposition Clinical Impression: Chest pain, Hypertension, Atypical chest pain Disposition: HOME SELF-CARE Condition: Good Instructions (If sedation given, give patient instructions): Chest Pain (ED) Is patient prescribed a controlled substance at d/c from ED?: No Referrals: None,Stated [Primary Care Provider] - 1-2 days
[2021-11-18 22:27] LABS: INR 0.9 (<1.2); Partial Thromboplastin Time 24.9 sec (22.0-30.0)
[2021-11-18 23:39] VITALS: RESP 16
[2021-11-19 00:22] VITALS: BP 145/84; PULSE 64
== END 2021-11-19 00:21 | disposition home or self-care (01) ==
LOC: EC 21:21
DX: R07.89 Other chest pain (principal); I10 Essential (primary) hypertension
CPT/HCPCS: 36415; 71046; 80053; 83690; 83735; 83880; 84484; 85025; 85610; 85730; 93005; 99285

== ENCOUNTER → 2022-06-06 | Outpatient (CLI) | payer BC | END | disposition home or self-care (01) | LOC: LABWHC1 14:58 | PROVIDERS: ATTEND Internal Medicine Interventional Cardiology | DX: Z53.9 Procedure and treatment not carried out, unspecified reason (principal) ==

== ENCOUNTER 2023-11-06 04:31 | Inpatient (IN) | payer BC, MEDICARE ==
--- NOTE | 2023-11-06 04:57 | ED ---
General Adult HPI - General Source: patient Mode of arrival: ambulatory <Sue Pedroza - Last Filed: 11/06/23 05:29> <Stevo Long - Last Filed: 11/06/23 08:43> - General Chief complaint: Neuro Symptoms/Deficit Stated complaint: left sided pain and numbness Time Seen by Provider: 11/06/23 04:41 - History of Present Illness Initial comments: Benja is a pleasant 68-year-old gentleman who presents to the ER today for evaluation of multiple complaints. Patient states that he is currently being treated for a sinus infection. Last night he started Flonase for the first time he states that because of the sinus infection he has had some facial swelling but has otherwise been doing well. Patient states that yesterday evening he was doing prayers and he developed some numbness and tingling in his left arm he thought it might be a pinched nerve or due to position he did not think too much of it he then went to bed. Patient states he woke up at 3 AM been laying on his left side he noted that he was very sweaty but not hot or febrile. He felt like his left leg was little painful and may be tingling in the foot. Patient c hecked his blood pressure and heart rate noted that he was mildly hypertensive and his heart rate was up from his typical patient states that his systolic was in the 160s and his rate was in the 80s and this is high for him. With all the symptoms going on patient became concerned and decided to come to the ER for evaluation. She reports no headache, no vision changes. No trouble with speaking or swallowing. (Sue Pedroza) - Related Data Home Medications Medication Instructions Recorded Confirmed Multivitamins, Thera [Multivitamin 1 tab PO DAILY 04/13/21 04/13/21 (formulary)] [place]-3 Fatty Acids/Fish Oil [Fish 1 cap PO DAILY 04/13/21 04/13/21 Oil 1,000 mg Softgel] Zinc 50 mg PO DAILY 04/13/21 04/13/21 Previous Rx's Medication Instructions Recorded Aspirin 81 mg PO DAILY #30 04/14/21 Atorvastatin [Lipitor] 80 mg PO HS #30 tab 04/14/21 Metoprolol Tartrate [Lopressor] 12.5 mg PO BID #60 tab 04/14/21 amLODIPine [Norvasc] 5 mg PO DAILY #30 tab 04/14/21 Allergies Allergy/AdvReac Type Severity Reaction Status Date / Time No Known Allergies Allergy Verified 11/06/23 04:50 Review of Systems ROS Other: All systems not noted in ROS Statement are negative. <Sue Pedroza P - Last Filed: 11/06/23 05:29> ROS Other: All systems not noted in ROS Statement are negative. <Stevo Long D - Last Filed: 11/06/23 08:43> ROS Statement: Those systems with pertinent positive or pertinent negative responses have been documented in the HPI. Past Medical History Past Medical History: Hypertension History of Any Multi-Drug Resistant Organisms: None Reported Past Surgical History: No Surgical Hx Reported Past Psychological History: No Psychological Hx Reported Smoking Status: Never smoker Past Alcohol Use History: Occasional Past Drug Use History: None Reported <Sue Pedroza P - Last Filed: 11/06/23 05:29> General Exam <Sue Pedroza P - Last Filed: 11/06/23 05:29> - General Exam Comments Initial Comments: Physical Exam GENERAL: Patient is well-developed and well-nourished. Patient is nontoxic and well-hydrated and is in no distress. HENT: Normocephalic, Atraumatic. EYES: PERRL, EOMI PULMONARY: Unlabored respirations. No audible rales rhonchi or wheezing was noted. CARDIOVASCULAR: There is a regular rate and rhythm without any murmurs gallops or rubs. ABDOMEN: Soft and nontender with normal bowel sounds. SKIN: Skin is clear with no lesions or rashes and otherwise unremarkable. : Deferred NEUROLOGIC: Patient is alert and oriented x3. Moving all extremities spontaneously MUSCULOSKELETAL: Normal extremities with adequate strength and full range of motion. No lower extremity swelling or edema. No calf tenderness. PSYCHIATRIC: Normal psychiatric evaluation. NIH Stroke Scale/Score (NIHSS) RESULT SUMMARY: 1 points NIH Stroke Scale INPUTS: 1A: Level of consciousness > 0 = Alert; keenly responsive 1B: Ask month and age > 0 = Both questions right 1C: 'Blink eyes' & 'squeeze hands' > 0 = Performs both tasks 2: Horizontal extraocular movements > 0 = Normal 3: Visual lord > 0 = No visual loss 4: Facial palsy > 0 = Normal symmetry 5A: Left arm motor drift > 0 = No drift for 10 seconds 5B: Right arm motor drift > 0 = No drift for 10 seconds 6A: Left leg motor drift > 0 = No drift for 5 seconds 6B: Right leg motor drift > 0 = No drift for 5 seconds 7: Limb Ataxia > 0 = No ataxia 8: Sensation > 1 = Mild-moderate loss: less sharp/more dull 9: Language/aphasia > 0 = Normal; no aphasia 10: Dysarthria > 0 = Normal 11: Extinction/inattention > 0 = No abnormality (Sue Pedroza) Course Vital Signs 11/06/23 11/06/23 11/06/23 04:46 06:10 08:37 Temperature 98.5 F 98.2 F Pulse Rate 74 70 67 Respiratory 18 18 18 Rate Blood Pressure 139/78 148/70 136/86 O2 Sat by Pulse 99 100 96 Oximetry EKG Findings - EKG Comments: EKG Findings:: EKG was obtained due to prior stroke workup, EKG was obtained at 5:25 AM rate is 64 rhythm is sinus normal axis normal intervals SC 160 QRS 90 QTc [address] elevations or depressions no evidence of ischemia infarction or pathologic arrhythmia <Sue Pedroza P - Last Filed: 11/06/23 05:29> Medical Decision Making <Sue Pedroza - Last Filed: 11/06/23 05:29> - Lab Data Result diagrams: 11/06/23 05:21 11/06/23 05:21 <Stevo Long D - Last Filed: 11/06/23 08:43> - Medical Decision Making Was pt. sent in by a medical professional or institution (, PA, SECOND CLASS WELDER, urgent care, hospital, or assisted...) When possible be specific @ -[No] Did you speak to anyone other than the patient for history (EMS, parent, family, police, friend...)? What history was obtained from this source @ -[No] Did you review nursing and triage notes (agree or disagree)? Why? @ -[I reviewed and agree with nursing and triage notes] Were old charts reviewed (outside hosp., previous admission, EMS record, old EKG, old radiological studies, urgent care reports/EKG's, assisted records)? Report findings @ -[No old charts were reviewed] Differential Diagnosis (chest pain, altered mental status, abdominal pain women, abdominal pain men, vaginal bleeding, weakness, fever, dyspnea, syncope, headache, dizziness, GI bleed, back pain, seizure, CVA, palpatations, mental health)? @ -[not applicable] EKG interpreted by me (3pts min.). @ -[As above] X-rays interpreted by me (1pt min.). @ -[None done] CT interpreted by me (1pt min.). @ -[None done] U/S interpreted by me (1pt. min.). @ -[None done] What testing was considered but not performed or refused? (CT, X-rays, U/S, labs)? Why? @ -[None] What meds were considered but not given or refused? Why? @ -[None] Did you discuss the management of the patient with other professionals (professionals i.e. , PA, SECOND CLASS WELDER, lab, RT, psych nurse, social worker school, trimmer operator three knife, teacher, trust officer, correctional case records supervisor)? Give summary @ -[No] Was smoking cessation discussed for >3mins.? @ -[No] Was critical care preformed (if so, how long)? @ -[No] Were there social determinants of health that impacted care today? How? (Homelessness, low income, unemployed, alcoholism, drug addiction, transportation, low edu. Level, literacy, decrease access to med. care, long-term, rehab)? @ -[No] Was there de-escalation of care discussed even if they declined (Discuss DNR or withdrawal of care, Hospice)? DNR status @ -[No] What co-morbidities impacted this encounter? (DM, HTN, Smoking, COPD, CAD, Cancer, CVA, ARF, Chemo, Hep., AIDS, mental health diagnosis, sleep apnea, morbid obesity)? @ -[None] Was patient admitted / discharged? Hospital course, mention meds given and route, prescriptions, significant lab abnormalities, going to OR and other pertinent info. @ -[hospital course] Undiagnosed new problem with uncertain prognosis? @ -[No] Drug Therapy requiring intensive monitoring for toxicity (Heparin, Nitro, Insulin, Cardizem)? @ -[No] Were any procedures done? @ -[No] Diagnosis/symptom? @ -[default] Acute, or Chronic, or Acute on Chronic? @ -[default] Uncomplicated (without systemic symptoms) or Complicated (systemic symptoms)? @ -[default] Side effects of treatment? @ -[No] Exacerbation, Progression, or Severe Exacerbation? @ -[No] Poses a threat to life or bodily function? How? (Chest pain, [place], [place], pneumonia, PE, COPD, DKA, ARF, appy, cholecystitis, CVA, Diverticulitis, Homicidal, Suicidal, threat to staff... and all critical care pts) @ -[No] (Sue Pedroza) 68-year-old male presents to the ER for left-sided sensory deficit. Patient care signed out to me by previous shift physician for follow-up of pending CT imaging. CT imaging was negative for acute intracranial process. There does appear to be complete opacification of the left sinuses.. Patient reevaluated bedside states that he still having some paresthesias to the left upper extremity. disposition options were discussed with patient. It is recommended that he be admitted with consultation to neurology. Case discussed with hospitalist who was concerned about cerebral sinus venous thrombosis. CT angio was ordered per request by hospitalist. Radiology refused to do imaging given that he already had contrast exposure from the sinus scan. I did speak with neurology for appropriateness of admitting patient here in emergency department despite imaging studies not performed for rule out of venous sinus thrombosis. Dr. Bianchi did state that given patient's clinical presentation and he is amenable for hospital admission here. Patient started on Unasyn for sinus infection and given 1 dose of aspirin (Stevo Long) - Lab Data Lab Results 11/06/23 11/06/23 11/06/23 Range/Units 05:21 05:21 05:21 WBC 6.2 (3.8-10.6) k/uL RBC 4.48 (4.30-5.90) m/uL Hgb 14.1 (13.0-17.5) gm/dL Hct 41.4 (39.0-53.0) % MCV 92.6 (80.0-100.0) fL MCH 31.5 (25.0-35.0) pg MCHC 34.0 (31.0-37.0) g/dL RDW 13.2 (11.5-15.5) % Plt Count 345 (150-450) k/uL MPV 7.6 Neutrophils % 52 % Lymphocytes % 34 % Monocytes % 8 % Eosinophils % 3 % Basophils % 1 % Neutrophils # 3.2 (1.3-7.7) k/uL Lymphocytes # 2.1 (1.0-4.8) k/uL Monocytes # 0.5 (0-1.0) k/uL Eosinophils # 0.2 (0-0.7) k/uL Basophils # 0.0 (0-0.2) k/uL PT 10.2 (10.0-12.5) sec INR 0.9 (<1.2) APTT 25.5 (22.0-30.0) sec Sodium 140 (137-145) mmol/L Potassium 4.1 (3.5-5.1) mmol/L Chloride 110 H (98-107) mmol/L Carbon Dioxide 19 L (22-30) mmol/L Anion Gap 11 mmol/L BUN 20 (9-20) mg/dL Creatinine 0.91 (0.66-1.25) mg/dL Est GFR (CKD-EPI)AfAm >90 (>60 ml/min/1.73 sqM) Est GFR (CKD-EPI)NonAf 86 (>60 ml/min/1.73 sqM) Glucose 117 H (74-99) mg/dL Calcium 8.9 (8.4-10.2) mg/dL Total Bilirubin 0.5 (0.2-1.3) mg/dL AST 30 (17-59) U/L ALT 23 (4-49) U/L Alkaline Phosphatase 86 (38-126) U/L Creatine Kinase 149 (55-170) U/L Total Protein 7.0 (6.3-8.2) g/dL Albumin 4.0 (3.5-5.0) g/dL Disposition <Sue Pedroza P - Last Filed: 11/06/23 05:29> Decision Time: 08:43 <Stevo Long - Last Filed: 11/06/23 08:43> Clinical Impression: Focal motor deficit Disposition: ADMITTED IP TO THIS [facility] Condition: Fair Referrals: Orville Brown MD [Primary Care Provider] - 1-2 days
[2023-11-06 05:40] LABS: Basophils % (A) 1 %; Eosinophils # (A) 0.2 k/uL (0-0.7); Eosinophils % (A) 3 %; HCT 41.4 % (39.0-53.0); HGB 14.1 gm/dL (13.0-17.5); Lymphocytes # (A) 2.1 k/uL (1.0-4.8); Lymphocytes % (A) 34 %; MCH 31.5 pg (25.0-35.0); MCV 92.6 fL (80.0-100.0); Mean Platelet Volume 7.6; Monocytes # (A) 0.5 k/uL (0-1.0); Monocytes % (A) 8 %; Neutrophils # (A) 3.2 k/uL (1.3-7.7); Neutrophils % (A) 52 %; Platelet Count 345 k/uL (150-450); RBC 4.48 m/uL (4.30-5.90); RDW 13.2 % (11.5-15.5); WBC 6.2 k/uL (3.8-10.6)
[2023-11-06] MEDS: SODIUM CHLORIDE 0.9% 1,000 ML IV STA (05:46)
[2023-11-06 06:18] LABS: ALT 23 U/L (4-49); AST 30 U/L (17-59); African American GFR (CKD) >90 (>60 ml/min/1.73 sqM); Alkaline Phosphatase 86 U/L (38-126); Anion Gap 11 mmol/L; Blood Urea Nitrogen 20 mg/dL (9-20); Calcium 8.9 mg/dL (8.4-10.2); Carbon Dioxide 19 mmol/L (22-30); Chloride 110 mmol/L (98-107); Creatine Kinase 149 U/L (55-170); Glucose 117 mg/dL (74-99); Non-African American GFR(CKD) 86 (>60 ml/min/1.73 sqM); Potassium 4.1 mmol/L (3.5-5.1); Sodium 140 mmol/L (137-145); Total Bilirubin 0.5 mg/dL (0.2-1.3)
[2023-11-06 06:27] LABS: INR 0.9 (<1.2); Partial Thromboplastin Time 25.5 sec (22.0-30.0); Prothrombin Time 10.2 sec (10.0-12.5)
--- NOTE | 2023-11-06 07:26 | XR ---
EXAMINATION TYPE: XR chest 2V DATE OF EXAM: 11/06/2023 6:53 AM CLINICAL INDICATION:Male, 68 years old with history of altered mental status; [facility] COMPARISON: Chest radiographs from 11/18/2021. TECHNIQUE: XR chest 2V Frontal and lateral views of the chest. FINDINGS: Lungs/Pleura: There is no evidence of pleural effusion, focal consolidation, or pneumothorax. Pulmonary vascularity: Unremarkable. Heart/mediastinum: Cardiomediastinal silhouette is unremarkable. Musculoskeletal: No acute osseous pathology. Other findings: None IMPRESSION: No acute cardiopulmonary disease/process.
--- NOTE | 2023-11-06 07:31 | CT ---
EXAMINATION TYPE: CT brain wo con, CT sinus w con CT DLP: 1095.2 (accession [id number]), 1527.4 (accession [id number]) mGycm, Automated exposure control fo r dose reduction was used. DATE OF EXAM: 11/06/2023 6:51 AM COMPARISON: None. CLINICAL INDICATION:Male, 68 years old with history of Neuro deficit, acute, stroke suspected, Left s ided numbness and tingling, facial swelling TECHNIQUE: Brain: Axial CT images of the brain were obtained with coronal and sagittal reformats created and rev iewed. Axial imaging of the sinuses with sagittal and coronal reformats. Contrast used: None. Oral contrast used: None. FINDINGS: Brain: Extra-axial spaces: No abnormal extra-axial fluid collections. Ventricular system: Within normal limits Cerebral parenchyma: No acute intraparenchymal hemorrhage or mass effect. The bañuelos-white junction is well differentiated. Cerebellum: Unremarkable. Mass effect: No evidence of midline shift. Intracranial vasculature: unremarkable Soft tissues: Normal. Calvarium/osseous structures: No depressed skull fracture. Paranasal sinuses and mastoid air cells: There is complete opacification of the left maxillary sinus with complete opacification of the left frontal sinus and the majority of the left ethmoid air cells. Knee ostomy unit is opacified, the frontonasal recess is opacified. Mild mucosal thickening of the s phenoid sinus left greater than right. The right paranasal sinuses are relatively clear. Lissette air c ells are seen bilaterally. Mastoid air cells are clear. No middle ear effusion. Visualized orbits: Orbital contents are intact. IMPRESSION: 1. No acute intracranial process. 2. Severe left-sided paranasal sinus disease. There is complete opacification of the majority of the left paranasal sinuses.
[2023-11-06] MEDS: AMPICILLIN-SULBACTAM 3 GM in SODIUM CHLORIDE 0.9% 100 ML IVPB STA (08:36)
[2023-11-06] MEDS ORDERED: NALOXONE 0.4 MG/ML 1 ML VIAL IV PRN (08:39)
[2023-11-06] MEDS: ASPIRIN 81 MG PO STA (08:59)
[2023-11-06] MEDS ORDERED: oxyCODONE-APAP 5-325MG 1 EACH TAB PO PRN (09:07)
[2023-11-06] MEDS: SODIUM CHLORIDE 0.9% 1,000 ML IV SCH (10:36)
[2023-11-06] MEDS: AMPICILLIN-SULBACTAM 3 GM in SODIUM CHLORIDE 0.9% 100 ML IVPB SCH (13:34)
--- NOTE | 2023-11-06 13:55 | P.HPIM ---
History of Present Illness H&P Date: 11/06/23 History of Presenting Illness: Patient is a very pleasant 68-year-old male with a past medical history of hypertension and recently diagnosed sinus infection on 11/05/2023. Patient states he has been experiencing left-sided sinus pain/pressure with mild facial swelling over the past few days and went to his PCPs yesterday and was started on Augmentin and Flonase. Patient reports yesterday evening he and his were doing their evening prayers and he developed some numbness and pain/paresthesias to his left arm. He reports that he contributed the n umbness/pain to may be sitting or positioning the wrong way resulting in a pinched nerve so he went to bed. Patient states this morning he woke up at 3 AM diaphoretic and again still feeling the pain/paresthesias and numbness throughout his left arm but when he went to stand up he also noticed that this numbness/pain was also now throughout his left lower extremity as well so he knew something was wrong and told his he had to come to the hospital. Upon arrival to the emergency department patient underwent full evaluation. Vital signs upon arrival with blood pressure 139/78, heart rate 74, respiratory rate 18, temp 98.5 F, and SpO2 of 99% on room air. EKG was completed showing sinus rhythm with no noted T wave or ST abnormalities showing no signs of acute ischemia. CT head was negative for acute intracranial process. CT sinuses showing severe left-sided paranasal sinus disease with complete opacification of the majority of the left paranasal sinuses. Chest x-ray completed negative for acute cardiopulmonary process. Labs completed and reviewed. CBC unremarkable. Coagulation profile normal finding. BMP revealing mild non-anion gap metabolic acidosis with chloride of 110, bicarb of 19, and anion gap of 11. Patient admitted under our services with consultation to neurology and ENT . Patient reports full resolution of left upper extremity and lower extremity numbness /pain/paresthesias at time of admission. Review of systems: Pertinent positives and negatives as discussed in HPI, a complete review of systems was performed and all other systems are negative. Physical exam: Vital signs reviewed and stable. General: Nontoxic, no distress and appears stated age. Derm: Skin warm and dry, normal coloration for ethnicity. Head: Atraumatic, normocephalic and symmetric. Tenderness reported to Eyes: EOMs intact, no lid lag, and anicteric sclera Mouth: no lip lesions, mucus membranes moist Cardiovascular: regular rate and rhythm with normal S1S2, no murmur, positive posterior tibial pulses bilaterally, and cap refill < 2 seconds. Lungs: Respirations even, regular, and unlabored on room air. Lungs CTA bilaterally, no rhonchi, no rales, no wheezing, and no accessory muscle usage. Abdominal: soft, nontender to palpation, no guarding, no appreciable organomegaly Ext: ROM intact. No gross muscle atrophy, no edema, no contractures Neuro: Speech clear, face symmetrical and CN II-XII grossly intact with no noted focal neuro deficits Psych: Alert and oriented to person, place, time, and situation. Appropriate and pleasant affect. Assessment and Plan of Care: Sinus infection with complete opacification of the majority of the left paranasal sinuses Left-sided weakness and pain/paresthesias, rule out TIA vs cavernous venous thrombosis -Neurology consulted, appreciate recommendations. -ENT consulted -CT head was negative for acute intracranial process. -CT sinuses showing severe left-sided paranasal sinus disease with complete opacification of the majority of the left paranasal sinuses. -Order placed for MR MRA/MRV head with contrast, cannot be completed until tomorrow per radiologist secondary to patient already receiving contrast -IV antibiotics with Unasyn 3 g every 6 hours -Symptomatic care/pain management. -Telemetry monitoring. -Order placed for aspirin 81 mg daily and atorvastatin 40 mg nightly. -Continue neurochecks every 4 hours. -Fall precautions -Follow-up on blood cultures Hypertension -Continue daily medication regimen with amlodipine 10 mg nightly and losartan 50 mg nightly. Data and imaging reviewed: As stated above in HPI. CODE STATUS: Full code DVT prophylaxis: Lovenox Anticipated discharge date: Clinical course to determine Anticipated discharge place: Clinical course to determine Patient was seen independently by Nurse Practitioner. This document was prepared using [employer] dictation software. Please allow for errors in animal assisted therapist while rare they do occur. Hector Oleary NP rendered care for this patient independently, reviewed the findings and plan as documented in the note above. I did not physically speak with or examine the patient on this date. Past Medical History Past Medical History: Hypertension History of Any Multi-Drug Resistant Organisms: None Reported Past Surgical History: No Surgical Hx Reported Past Psychological History: No Psychological Hx Reported Smoking Status: Never smoker Past Alcohol Use History: Occasional Past Drug Use History: None Reported - Past Family History Mother Additional Family Medical History / Comment(s): pts mother is 91 and has no medical issues Medications and Allergies Home Medications Medication Instructions Recorded Confirmed Type Amoxic-Pot Clav 875-125Mg 1 tab PO BID 11/06/23 11/06/23 History [Augmentin 875-125] Aspirin EC [Ecotrin Low Dose] 81 mg PO HS 11/06/23 11/06/23 History Fluticasone Nasal [place] [facility] [Flonase 2 spray EA NOSTRIL DAILY 11/06/23 11/06/23 History Nasal [facility]] Losartan Potassium 50 mg PO HS 11/06/23 11/06/23 History amLODIPine [Norvasc] 10 mg PO HS 11/06/23 11/06/23 History Allergies Allergy/AdvReac Type Severity Reaction Status Date / Time No Known Allergies Allergy Verified 11/06/23 08:43 Physical Exam Osteopathic Statement: *. No significant issues noted on an osteopathic structural exam other than those noted in the History and Physical/Consult. Vitals: Vital Signs Temp Pulse Resp BP Pulse Ox 11/06/23 08:37 98.2 F 67 18 136/86 96 11/06/23 06:10 70 18 148/70 100 11/06/23 04:46 98.5 F 74 18 139/78 99 Intake and Output 11/05/23 11/06/23 11/06/23 22:59 06:59 14:59 Other: Weight 90.718 kg Results CBC & Chem 7: 11/06/23 05:21 11/06/23 05:21 Labs: Abnormal Lab Results - Last 24 Hours (Table) 11/06/23 Range/Units 05:21 Chloride 110 H (98-107) mmol/L Carbon Dioxide 19 L (22-30) mmol/L Glucose 117 H (74-99) mg/dL
[2023-11-06] MEDS: ACETAMINOPHEN TAB 325 MG TAB PO PRN (15:02)
--- NOTE | 2023-11-06 20:20 | US ---
EXAMINATION TYPE: US carotid duplex BILAT DATE OF EXAM: 11/06/2023 COMPARISON: NONE CLINICAL INDICATION: Male, 68 years old with history of Left sided symptoms; left sided neural sympto ms TECHNIQUE: Carotid duplex ultrasound examination. Indirect Doppler criteria was utilized. FINDINGS: EXAM MEASUREMENTS: RIGHT: Peak Systolic Velocity (PSV) cm/sec ----- Right CCA: 101.1 ----- Right ICA: 118.9 ----- Right ECA: 166.4 ICA/CCA ratio: 1.2 RIGHT: End Diastole cm/sec ----- Right CCA: 22.0 ----- Right ICA: 26.8 ----- Right ECA: 27.0 LEFT: Peak Systolic Velocity (PSV) cm/sec ----- Left CCA: 114.0 ----- Left ICA: 97.8 ----- Left ECA: 128.1 ICA/CCA ratio: 0.9 LEFT: End Diastole cm/sec ----- Left CCA: 34.9 ----- Left ICA: 29.2 ----- Left ECA: 26.3 VERTEBRALS (direction of flow): Right Vertebral: Antegrade Left Vertebral: Antegrade Rhythm: Normal IMPRESSION: Minimal plaque seen in left bulb. No elevated velocities, consistent with no right or left carotid st enosis. Criteria for Assigning % of Stenosis / Diameter reduction (Estimation based on the indirect measurements of the internal carotid artery velocities (ICA PSV). 1. Normal (no stenosis)=ICA PSV < 125 cm/s: ratio < 2.0: ICA EDV<40 cm/s. 2. Less than 50% stenosis=ICA PSV < 125 cm/s: ratio < 2.0: ICA EDV<40 cm/s. 3. 50 to 69% stenosis=ICA PSV of 125 to 230 cm/s: ration 2.0 ? 4.0: ICA EDV 40-100 cm/s. 4. Greater than 70% stenosis to near occlusion= ICA PSV > 230 cm/s: ratio > 4.0: ICA EDV > 100 cm/s. 5. Near occlusion= ICA PSV velocities may be low or undetectable: variable ratio and ICA EDV. 6. Total occlusion=unable to detect flow.
[2023-11-06] MEDS: amLODIPine 10 MG TAB PO SCH (20:41)
[2023-11-06] MEDS: LOSARTAN 50 MG TAB PO SCH (20:41)
[2023-11-06] MEDS: ATORVASTATIN 40 MG TAB PO SCH (20:42)
--- NOTE | 2023-11-07 00:55 | CONS ---
CONSULTATION REASON FOR CONSULTATION: Left-sided sinusitis. HISTORY: This is a 68-year-old white male, who has had some difficulties with some left facial pain and pressure over the last 2 weeks, although does have a longer history of difficulty with a left maxillary tooth. He was yesterday started on Augmentin for sinusitis and possible tooth infection, but then last night, he started having some numbness and tingling in the left arm and as this persisted, he came in for evaluation. This persisted in the ER, but is now actually resolved. He is actually feeling well other than some mild left maxillary pain currently. He does have a known issue with the left maxillary tooth as noted with a crown and he actually pushed area of the tooth root about 2 days ago and did have some fluids come out into his mouth. He is having no headache or visual changes. His CT of the brain and sinus showed left-sided sinus opacification. He has not had difficulties particularly with the nose and sinuses previously and denies any nasal drainage currently. MEDICATIONS: At home, 1. Zinc. 2. [place]-3. 3. Multivitamins. 4. Aspirin. 5. Lipitor. 6. Lopressor. 7. Norvasc. 8. Augmentin. ALLERGIES: No known drug allergies. REVIEW OF SYSTEMS: Negative 14-point review of systems. PAST MEDICAL HISTORY: Hypertension. PAST SURGICAL HISTORY: None. SOCIAL HISTORY: Smoking history, none. Alcohol history, occasional. FAMILY HISTORY: Noncontributory. PHYSICAL EXAMINATION: VITAL SIGNS: Well-developed white male, in no acute distress, conversant, awake, alert, and oriented x3. HEENT: Head, normocephalic and atraumatic. Ears, bilaterally canals are clear. Tympanic membranes are unremarkable and mobile. Nose shows no drainage or obstruction. Mouth and throat shows some missing teeth, particularly molars. There is some mild tenderness over the tooth root of his premolar left maxilla. No fluctuance. Oropharynx unremarkable. No trismus. NECK: Supple without adenopathy or tenderness. IMAGING STUDIES: CT evaluated with opacification of left maxillary ethmoid and frontal sinus, but no bony erosion. ASSESSMENT: Left-sided acute sinusitis, possible odontogenic etiology. Currently, the patient is feeling quite well and I would recommend to continue Unasyn until discharge and then resuming the Augmentin. He will need to follow up with his dentist as soon as he is discharged and would follow up with ENT including our office if he has any persistent sinus infection symptomatology despite the treatment with the dentist, which may even include root canal. If he develops any other symptomatology such as headache or visual changes, that he will need to be seen more than acutely. If there are questions or concerns, please feel free to contact me. SHANI / JORGE: [phone] /
[2023-11-07] MEDS: ASPIRIN 81 MG PO SCH (09:30)
[2023-11-07] MEDS: ENOXAPARIN 40 MG/0.4 ML SYRINGE SQ SCH (09:35)
--- NOTE | 2023-11-07 09:58 | MR ---
EXAMINATION TYPE: MR MRA/MRV head wo con DATE OF EXAM: 11/07/2023 9:12 AM CLINICAL INDICATION:Male, 68 years old with history of r/o cavernous venous thrombosis; PHH, R/O cave rnous thrombosis, Left side numbness and tingling, facial swelling COMPARISON: CT 11/06/2023. TECHNIQUE: MRA brain: 3-D [id number] Axial with MIP and 3-D reconstruction performed on a separate workstati on. MRV of the brain: performed utilizing two-dimensional [id number] technique MIP and 3-D reconstruc tion. Performed on a separate workstation. IV Contrast: cc (None if empty) Findings: Vertebral arteries: The vertebral arteries are patent. The vertebral arteries are codominant. Basilar artery: The basilar artery is intact. The basilar artery bifurcation is normal. Basilar tip i nfundibulum mild dilation. Internal Carotid arteries: The cervical, petrous, cavernous and supraclinoid segments are normal. LAURA: Patent without evidence of aneurysm. Hypoplastic right dominant left. ACOM: Patent without evidence of aneurysm. MCA: Patent without evidence of aneurysm. TAKER OUT: Patent without evidence of aneurysm. origin of the posterior cerebral arteries bilaterally . PCOM: Hypoplastic bilaterally. There is no evidence of venous occlusion or collateral circulation. There is no evidence of sinus th rombosis. Hypoplastic left transverse sinus and dominant right IMPRESSION: 1. No evidence of venous sinus thrombosis. 2. No evidence of intracranial aneurysm or significant stenosis.
[2023-11-07 10:16] LABS: Chol/HDL Ratio 4.81 Ratio; LDL Cholesterol,Calculated 111.4 mg/dL (0.0-131.0); VLDL Calculation 18.46 mg/dL (5.00-40.00)
--- NOTE | 2023-11-07 10:32 | P.CNNES ---
History of Present Illness Consult date: 11/06/23 Requesting physician: Stevo Long Reason for Consult: Neurodeficit History of Present Illness: Patient is a 68-year-old right-handed male came to the hospital this morning at 4:31 AM. For left-sided symptoms. Patient states that on 11/04/2023, 2 days ago, he underwent stress test. He has been having sinus infection for which she was using antihistamine which was raising his blood pressure. For the last 1 week, he has been having sinus pressure around his left eye socket. He was taking aspirin. He saw his family physician the next day on 11/04/2021 for and was given a course of antibiotic and a Flonase. Patient states that last night at 8 PM he was sitting in the living room, doing prayers, when he noticed some tingling and funny feeling in the left extensor forearm region. He felt it was some nerve compression, and he repositions himself and the symptoms went away in couple minutes. Patient states that at 3 AM he woke up sweating and tingling in the left leg with hurting. He started walking, and the symptoms in the left leg improved in 10 to 15 minutes. He checked his blood pressure was around 172/80. He got concerned and decided to come to the ER. While coming to the ER, he noticed some funny feeling in the left side of the face. He has been feeling tenderness in the tooth for the last 1 week. He denied any slurred speech, facial droop or any problem with the vision or double vision. Vital signs on arrival blood pressure 139/78, pulse rate 74 temperature 98.5. He has been afebrile. Blood test shows normal CBC, PT PTT, normal CMP. EKG and chest x-ray are normal. CT head revealed no acute intracranial process. Severe left-sided paranasal sinus disease. There is complete opacification of the majority of the left paranasal sinuses. I personally reviewed CT head, agree with the findings. Patient states that about 8 months ago, he had problem with that tooth for which she received course of antibiotic which helped. He states that about 1 to 2 months ago, he was eating corn chips, when a chip stuck in his tooth. It became swollen afterwards. He pressed it, and did not feel anything in his mouth, felt it may have drained in the "sinus". Patient has smoked less than 1 pack/day for 35 years, quit in 2012. He has hypertension but no diabetes or hyperlipidemia. He has been taking aspirin 81 mg daily since 2019. Review of Systems Constitutional: Denies chills, Denies fever Eyes: bilateral blurred vision, denies diplopia, denies loss of vision Ears: deny: decreased hearing, ear discharge Ears, nose, mouth and throat: Reports nasal congestion, Denies headache, Denies sore throat, Denies vertigo Cardiovascular: Denies chest pain, Denies shortness of breath Respiratory: Denies cough, Denies excessive sputum Gastrointestinal: Denies abdominal pain, Denies diarrhea, Denies nausea, Denies vomiting Genitourinary: Denies dysuria, Denies incontinence Integumentary: Denies pruritus, Denies rash Neurological: Reports as per HPI Past Medical History Past Medical History: Hypertension History of Any Multi-Drug Resistant Organisms: None Reported Past Surgical History: No Surgical Hx Reported Additional Past Anesthesia/Blood Transfusion Reaction / Comment(s): pt has never had surgery Past Psychological History: No Psychological Hx Reported Smoking Status: Former smoker Past Alcohol Use History: Occasional Additional Past Alcohol Use History / Comment(s): pt quit smoking in 2012, pt states he drinks a glass of wine daily Past Drug Use History: None Reported - Past Family History Mother Additional Family Medical History / Comment(s): pts mother is 91 and has no medical issues Medications and Allergies Home Medications Medication Instructions Recorded Confirmed Type Amoxic-Pot Clav 875-125Mg 1 tab PO BID 11/06/23 11/06/23 History [Augmentin 875-125] Aspirin EC [Ecotrin Low Dose] 81 mg PO HS 11/06/23 11/06/23 History Fluticasone Nasal [place] [Flonase 2 spray EA NOSTRIL DAILY 11/06/23 11/06/23 History Nasal [place]] Losartan Potassium 50 mg PO HS 11/06/23 11/06/23 History amLODIPine [Norvasc] 10 mg PO HS 11/06/23 11/06/23 History Allergies Allergy/AdvReac Type Severity Reaction Status Date / Time No Known Allergies Allergy Verified 11/06/23 08:43 Physical Examination - Vital Signs Vital Signs: Vital Signs Temp Pulse Resp BP Pulse Ox 03/21/24 13:02 59 L 16 135/77 95 11/06/23 12:02 63 16 126/81 95 11/06/23 10:42 62 18 130/73 97 11/06/23 08:37 98.2 F 67 18 136/86 96 11/06/23 06:10 70 18 148/70 100 11/06/23 04:46 98.5 F 74 18 139/78 99 Intake and Output 11/06/23 11/06/23 11/06/23 06:59 14:59 22:59 Other: Weight 90.718 kg Patient is a young looking elderly male, in no acute distress. Patient is alert awake oriented to time place and person. Speech and language functions are normal. Patient can name and repeat very well. No aphasia or dysarthria. Attention, concentration and fund of knowledge is adequate. On cranial nerve examination, pupils are equal, round and reacting to light, vis ual lord are full on confrontation, with no neglect on double simultaneous stimulation. Extraocular muscles are intact with no nystagmus. Face is symmetric, tongue protrudes to the midline. Palatal elevation and sensation normal, hearing and shoulder shrug normal, facial sensation normal. On muscle strength testing, there is no pronator drift and the strength is normal in arms and legs distally and proximally. Deep tendon reflexes are symmetric but overall diminished and plantars downgo ing. Sensory to touch is equal with no neglect on double simultaneous stimulation. Cerebellar function showed no ataxia for [id number] testing. No dysdiadochokinesia. No ataxia for lbea-au-ryom testing on either side. Tone and bulk of muscles normal. Gait deferred.. On general examination, there is no carotid bruit or murmur, S1-S2 audible. Chest is clear on consultation. Abdomen is soft nontender. No organomegaly, bowel sounds present. Peripheral pulses are present. No peripheral edema. Results - Laboratory Findings CBC and BMP: 11/06/23 05:21 11/06/23 05:21 Abnormal Lab Findings: Abnormal Labs 11/06/23 05:21 Chloride 110 H Carbon Dioxide 19 L Glucose 117 H Assessment and Plan Assessment: * Left facial pain, involving alissa-orbital/sinus region, likely due to acute sinusitis, with complete opacification of the left maxillary and left frontal sinuses. * Left-sided paresthesias, unclear cause. Doubt cerebral ischemia. * Hypertension * Hyperlipidemia * Ex tobacco use Plan: * Agree with ENT consultation for left-sided pansinusitis. Patient currently on Unasyn. * Carotid Doppler rule out stenosis. * Patient undergoing MRI of the brain and MRV. * Continue aspirin 81 mg daily. Patient has been taking it prior to arrival. * Lipid panel with cholesterol 164, LDL 111, HDL 34, triglycerides 92. Agree with starting Lipitor 40 mg daily. * Check hemoglobin A1c. * Optimize control of blood pressure. * Aggressive control of vascular risk factors. * Telemetry monitoring. * DVT prophylaxis: Patient on Lovenox 40 mg subcu daily. * Neurology will follow. Thank you for the consult. Addendum: Hemoglobin A1c 6.2. Recommend healthy lifestyles, dietary adjustment. MRA brain, MRV brain showed no evidence of venous sinus thrombosis, no evidence of intracranial aneurysm or significant stenosis. Neurologically clear for discharge.
[2023-11-07 10:44] VITALS: PULSE 64; RESP 17
[2023-11-07] MEDS ORDERED: ARTIFICIAL TEARS-HYPROMELLOSE DROPS 15 ML BTL LEFT EYE PRN (11:02)
--- NOTE | 2023-11-07 15:13 | P.DS ---
Providers Date of admission: 11/06/23 08:41 Expected date of discharge: 11/07/23 Attending physician: Jazz Thompson DO Consults: 11/06/23 08:39 Consult Physician Routine Consulting Provider: Andry Bianchi Consult Reason/Comments: neuro deficit Do you want consulting provider notified?: Yes 11/06/23 11:08 Consult Physician Routine Consulting Provider: Silvano Martinez Consult Reason/Comments: severe L-sided paranasal sinus disease w/ complete opacification L paranasa Do you want consulting provider notified?: Yes Primary care physician: Orville Brown [facility] Course: Discharge Diagnosis: Sinus infection with complete opacification of the majority of the left paranasal sinuses. Left-sided weakness and pain/paresthesias, cavernous venous thrombosis ruled out. Hypertension. Continue daily medication regimen with amlodipine 10 mg nightly and losartan 50 mg nightly. Hospital Course: Patient is a very pleasant 68-year-old male with a past medical history of hypertension and recently diagnosed sinus infection on 11/05/2023. Patient states he has been experiencing left-sided sinus pain/pressure with mild facial swelling over the past few days and went to his PCPs yesterday and was started on Augmentin and Flonase. Patient reports yesterday evening he and his were doing their evening prayers and he developed some numbness and pain/paresthesias to his left arm. He reports that he contributed the numbness/pain to may be sitting or positioning the wrong way resulting in a pinched nerve so he went to bed. Patient states this morning he woke up at 3 AM diaphoretic and again still feeling the pain/paresthesias and numbness throughout his left arm but when he went to stand up he also noticed that this numbness/pain was also now throughout his left lower extremity as well so he knew something was wrong and told his he had to come to the hospital. Upon arrival to the emergency department patient underwent full evaluation. Vital signs upon arrival with blood pressure 139/78, heart rate 74, respiratory rate 18, temp 98.5 F, and SpO2 of 99% on room air. EKG was completed showing sinus rhythm with no noted T wave or ST abnormalities showing no signs of acute ischemia. CT head was negative for acute intracranial process. CT sinuses showing severe left-sided paranasal sinus disease with complete opacification of the majority of the left paranasal sinuses. Chest x-ray completed negative for acute cardiopulmonary process. Labs completed and reviewed. CBC unremarkable. Coagulation profile normal finding. BMP revealing mild non-anion gap metabolic acidosis with chloride of 110, bicarb of 19, and anion gap of 11. Patient admitted under our services with consultation to neurology and ENT . Patient reports full resolution of left upper extremity and lower extremity numbness/pain/paresthesias at time of admission. Carotid Dopplers completed showing minimal plaque in the left bulb with no elevated velocities consistent with no right or left carotid stenosis reported. MRA completed showing no evidence of venous sinus thrombosis and no evidence of intracranial aneurysm or significant stenosis. He was evaluated by ENT recommending outpatient follow-up with their office as well as dentist after completion of antibiotic course. Patient evaluated by neurology recommending continuation of aspirin 81 mg daily and atorvastatin 40 mg daily and clearing patient from neurological perspective for discharge. Medically, patient is stable for discharge at this time. Patient to complete entire course of antibiotics with Augmentin as previously prescribed. Patient was prescribed a 10-day course and reports only taking 1 pill prior to coming to the emergency department. Patient to follow-up outpatient with PCP in 1 to 2 days and with ENT in 1 to 2 weeks. Physical exam: Vital signs reviewed and stable. General: Nontoxic, no distress and appears stated age. Derm: Skin warm and dry, normal coloration for ethnicity. Head: Atraumatic, normocephalic and symmetric. Mild Tenderness reported to frontal and maxillary sinuses on left side. Eyes: EOMs intact, no lid lag, and anicteric sclera Mouth: no lip lesions, mucus membranes moist Cardiovascular: regular rate and rhythm with normal S1S2, no murmur, positive posterior tibial pulses bilaterally, and cap refill < 2 seconds. Lungs: Respirations even, regular, and unlabored on room air. Lungs CTA bilaterally, no rhonchi, no rales, no wheezing, and no accessory muscle usage. Abdominal: soft, nontender to palpation, no guarding, no appreciable organomegaly Ext: ROM intact. No gross muscle atrophy, no edema, no contractures Neuro: Speech clear, face symmetrical and CN II-XII grossly intact with no noted focal neuro deficits Psych: Alert and oriented to person, place, time, and situation. Appropriate and pleasant affect. A total of 32 minutes of time were spent preparing this complex discharge summary. Pt was discharged on at 3:05 PM. Patient was seen independently by Nurse Practitioner. This document was prepared using [employer] dictation software. Please allow for errors in repairer resistance welding machines while rare they do occur. Hector Oleary NP rendered care for this patient independently, reviewed the findings and plan as documented in the note above. I did not physically speak with or examine the patient on this date. Patient Condition at Discharge: Stable Plan - Discharge Summary Discharge Rx Participant: No New Discharge Prescriptions: New Atorvastatin [Lipitor] 40 mg PO HS 30 Days #30 tab Continue Aspirin EC [Ecotrin Low Dose] 81 mg PO HS Amoxic-Pot Clav 875-125Mg [Augmentin 875-125] 1 tab PO BID amLODIPine [Norvasc] 10 mg PO HS Losartan Potassium 50 mg PO HS Fluticasone Nasal [place] [Flonase Nasal [place]] 2 spray EA NOSTRIL DAILY Discharge Medication List Amoxic-Pot Clav 875-125Mg [Augmentin 875-125] 1 tab PO BID 11/06/23 [History] Aspirin EC [Ecotrin Low Dose] 81 mg PO HS 11/06/23 [History] Fluticasone Nasal [place] [Flonase Nasal [place]] 2 spray EA NOSTRIL DAILY 11/06/23 [History] Losartan Potassium 50 mg PO HS 11/06/23 [History] amLODIPine [Norvasc] 10 mg PO HS 11/06/23 [History] Atorvastatin [Lipitor] 40 mg PO HS 30 Days #30 tab 11/07/23 [Rx] Follow up Appointment(s)/Referral(s): Orville Brown MD [Primary Care Provider] - 1-2 days (office is now closed, please call office for appt time) Silvano Martinez MD [STAFF PHYSICIAN] - 1 Week (please call office for follow up appt) Patient Instructions/Handouts: Sinusitis (ED), Ischemic Stroke (GEN) Activity/Diet/Wound Care/Special Instructions: Activity: As tolerated. Take breaks as needed. Diet: Heart healthy and carb consistent diet. Avoid salts, or foods with hidden salts such as canned or boxed foods and frozen dinners. Extra salt makes your heart work harder and traps the fluid in your body for longer. Special Instructions: Take all of your medications as directed and remember to keep all of your doctor's appointments and follow-up as needed. Be sure to complete the entire course of your Augmentin as previously prescribed. follow up with dentistry in 1 week Thank you for allowing us to participate in your care, it was truly a pleasure having you for our patient!!! Discharge Disposition: HOME SELF-CARE
[2023-11-07 16:41] VITALS: BP 146/79; TEMP 98.5
== END 2023-11-07 17:05 | disposition home or self-care (01) | DRG 153 ==
LOC: EC 04:31 → 3SCARD 08:41
PROVIDERS: ADMIT Internal Medicine; ATTEND Internal Medicine
DX: J01.80 Other acute sinusitis (principal); E87.20 Acidosis, unspecified; R20.2 Paresthesia of skin; E78.5 Hyperlipidemia, unspecified; I10 Essential (primary) hypertension; R53.1 Weakness; Z87.891 Personal history of nicotine dependence; Z79.82 Long term (current) use of aspirin; Z79.899 Other long term (current) drug therapy
CPT/HCPCS: 36415; 70450; 70487; 70544; 71046; 80053; 80061; 82550; 83036; 85025; 85610; 85730; 87040; 93005; 93880; 96361; 96365; 96375; 99285

== ENCOUNTER 2024-12-19 22:20 | Observation (INO) | payer BC, MEDICARE ==
--- NOTE | 2024-12-19 22:44 | ED ---
Chest Pain HPI - General Chief Complaint: Neuro Symptoms/Deficit Stated Complaint: left hand numbness left leg numbness Time Seen by Provider: 12/19/24 22:33 Source: patient, RN notes reviewed, old records reviewed Mode of arrival: ambulatory Limitations: no limitations - History of Present Illness Initial Comments: This i left arm pain and symptoms s a 69-year-old male to the ER today. Patient presents today for evaluation regards to chest pain left arm pain left leg pain. Patient symptoms persisted throughout the day 1 from his left arm into his left leg, sharp stabbing type pains. Patient has no real travel history no sick contacts persistent symptoms here in the ER Patient states he awoke with left- sided chest pain symptoms with concern for history of heart disease with history of high blood pressure. Patient has continued symptoms here in the ER no headache or shortness of breath no diaphoresis, concern for elevated blood pressure, no headaches no weakness no numbness MD Complaint: chest pain -: days(s) Onset: during rest, during exertion Pain Location: substernal Pain Radiation: none Severity: moderate Severity scale (1-10): 4 Quality: tightness, aching Consistency: constant Improves With: nothing Worsens With: nothing Anginal Symptoms: dyspnea Other Symptoms: palpitations Treatments Prior to Arrival: none - Related Data Home Medications Medication Instructions Recorded Confirmed Aspirin EC [Ecotrin Low Dose] 81 mg PO HS 11/06/23 12/20/24 Losartan Potassium 50 mg PO HS 11/06/23 12/20/24 amLODIPine [Norvasc] 10 mg PO HS 11/06/23 12/20/24 Previous Rx's Medication Instructions Recorded Atorvastatin [Lipitor] 40 mg PO HS #30 tab 12/22/24 Allergies Allergy/AdvReac Type Severity Reaction Status Date / Time amoxicillin [From Augmentin] AdvReac Chest Pain Verified 12/20/24 11:13 clavulanic acid AdvReac Chest Pain Verified 12/20/24 11:13 [From Augmentin] Review of Systems ROS Statement: Those systems with pertinent positive or pertinent negative responses have been documented in the HPI. ROS Other: All systems not noted in ROS Statement are negative. EKG Findings - EKG Comments: EKG Findings:: EKG is sinus 61 TN 149 QRS 99 QTc 403 - EKG Results: EKG: interpreted by JAZMYNE Past Medical History Past Medical History: Hypertension History of Any Multi-Drug Resistant Organisms: None Reported Past Surgical History: No Surgical Hx Reported Additional Past Anesthesia/Blood Transfusion Reaction / Comment(s): pt has never had surgery Past Psychological History: No Psychological Hx Reported Smoking Status: Former smoker Past Alcohol Use History: Occasional Past Drug Use History: None Reported - Past Family History Mother Additional Family Medical History / Comment(s): pts mother is 91 and has no medical issues General Exam General appearance: alert, in no apparent distress Head exam: Present: atraumatic, normocephalic, normal inspection Eye exam: Present: normal appearance, PERRL, EOMI. Absent: scleral icterus, conjunctival injection, periorbital swelling ENT exam: Present: normal exam, mucous membranes moist Neck exam: Present: normal inspection. Absent: tenderness, meningismus, lymphadenopathy Respiratory exam: Present: normal lung sounds bilaterally. Absent: respiratory distress, wheezes, rales, rhonchi, stridor Cardiovascular Exam: Present: regular rate, normal rhythm, normal heart sounds. Absent: systolic murmur, diastolic murmur, rubs, gallop, clicks GI/Abdominal exam: Present: soft, normal bowel sounds. Absent: distended, tenderness, guarding, rebound, rigid Extremities exam: Present: normal inspection, full ROM, normal capillary refill. Absent: tenderness, pedal edema, joint swelling, calf tenderness Back exam: Present: normal inspection Neurological exam: Present: alert, oriented X3, CN II-XII intact Psychiatric exam: Present: normal affect, normal mood Skin exam: Present: warm, dry, intact, normal color. Absent: rash Course Vital Signs 12/19/24 12/19/24 12/20/24 22:22 23:27 00:27 Temperature 97.8 F Pulse Rate 71 65 68 Respiratory 20 18 18 Rate Blood Pressure 164/92 150/94 143/86 O2 Sat by Pulse 98 97 96 Oximetry 12/20/24 01:46 Temperature Pulse Rate 65 Respiratory 18 Rate Blood Pressure 132/80 O2 Sat by Pulse 98 Oximetry - Reevaluation(s) Reevaluation #1: 12/19/24 23:32 Records reviewed Reevaluation #2: 12/20/24 01:44 Patient still with symptoms of left arm pain and left leg pain with concerns for chest pain neck pain. Patient states symptoms are still concerning Reevaluation #3: 12/20/24 01:44 Patient informed of results questions answered Reevaluation #4: 12/19/24 23:32 Was pt. sent in by a medical professional or institution (ARMANDO Bermudez, SHEETER OPERATOR, urgent care, hospital, or halfway...) When possible be specific @ -no Did you speak to anyone other than the patient for history (EMS, parent, family, police, friend...)? What history was obtained from this source @ -no Did you review nursing and triage notes (agree or disagree)? Why? @ -agree Are old charts reviewed (outside hosp., previous admission, EMS record, old EKG, old radiological studies, urgent care reports/EKG's, halfway records)? Report findings @ -yes Differential Diagnosis (chest pain, altered mental status, abdominal pain women, abdominal pain men, vaginal bleeding, weakness, fever, dyspnea, syncope, head ache, dizziness, GI bleed, back pain, seizure, CVA, palpatations, mental health, musculoskeletal)? @ -prior EKG interpreted by me (3pts min.). @ -yes X-rays interpreted by me (1pt min.). @ -yes negative for acute disease CT interpreted by me (1pt min.). @ -yes negative for acute disease U/S interpreted by me (1pt. min.). @ -no What testing was considered but not performed or refused? (CT, X-rays, U/S, labs)? Why? @ -none What meds were considered but not given or refused? Why? @ -none Did you discuss the management of the patient with other professionals (professionals i.e. ARMANDO Bermudez, SHEETER OPERATOR, lab, RT, psych nurse, administrator social welfare, fishing hand, teacher, [place] police officer, leather case finisher)? Give summary @ -no Was smoking cessation discussed for >3mins.? @ -no Was critical care preformed (if so, how long)? @ -yes31 Were there social determinants of health that impacted care today? How? (Homelessness, low income, unemployed, alcoholism, drug addiction, transportation, low edu. Level, literacy, decrease access to med. care, fci, rehab)? @ -none Was there de-escalation of care discussed even if they declined (Discuss DNR or withdrawal of care, Hospice)? DNR status @ -no What co-morbidities impacted this encounter? (DM, HTN, Smoking, COPD, CAD, Cancer, CVA, ARF, Chemo, Hep., AIDS, mental health diagnosis, sleep apnea, morbid obesity)? @ -none Was patient admitted / discharged? Hospital course, mention meds given and route, prescriptions, significant lab abnormalities, going to OR and other pertinent info. @ - 69 male to be admitted for left arm pain left leg pain no chest pain curren tly but did have chest pain earlier in the day will admit for cardiology and neurology evaluation regarding symptoms Admitted Undiagnosed new problem with uncertain prognosis? @ -no Drug Therapy requiring intensive monitoring for toxicity (Heparin, Nitro, Insulin, Cardizem)? @ -no Were any procedures done? @ -no Diagnosis/symptom? @ -Chest pain with paresthesias Acute, or Chronic, or Acute on Chronic? @ -Acute Uncomplicated (without systemic symptoms) or Complicated (systemic symptoms)? @ -Complicated Side effects of treatment? @ -no Exacerbation, Progression, or Severe Exacerbation? @ -exacerbation Poses a threat to life or bodily function? How? (Chest pain, [place], [place], pneumonia, PE, COPD, DKA, ARF, appy, cholecystitis, CVA, Diverticulitis, Homicidal, Suicidal, threat to staff... and all critical care pts) @ -yes with acute chest pain Reevaluation #5: Differential Chest Pain: Stable Angina, Unstable Angina, STEMI, NSTEMI Aortic Dissection, Pneumothorax, Musculoskeletal, Esophageal Spasm GERD, Cholecystitis, Pancreatitis, Zoster, this is not meant to be an all-inclusive list. - Consultations Consultation #1: Spoke with [facility] who agrees to admit this [place] 69 [place] to be admitted for left arm pain left leg pain no chest pain currently but did have chest pain earlier in the day will admit for cardiology and neurology evaluation regarding symptoms Critical Care Time Critical Care Time: Yes Total Critical Care Time: 31 Disposition Clinical Impression: Chest pain, Hypertension, Arm paresthesia, left, Left leg paresthesias, Unstable angina, Focal motor deficit Disposition: ADMITTED IP TO THIS [facility] Condition: Serious Is patient prescribed a controlled substance at d/c from ED?: No Time of Disposition: 01:00
[2024-12-19] MEDS: SODIUM CHLORIDE 0.9% 1,000 ML IV ONE (22:59)
[2024-12-19 23:05] LABS: Basophils # (A) 0.03 10*3/uL (0.00-0.10); Basophils % (A) 0.3 %; Eosinophils # (A) 0.05 10*3/uL (0.04-0.35); Eosinophils % (A) 0.5 %; HCT 42.5 % (39.6-50.0); HGB 14.4 g/dL (13.0-17.0); Lymphocytes # (A) 1.93 10*3/uL (0.90-5.00); Lymphocytes % (A) 18.8 %; MCH 30.9 pg (27.0-32.0); MCHC 33.9 g/dL (32.0-37.0); MCV 91.2 fL (80.0-97.0); Mean Platelet Volume 9.1 fL (9.5-12.2); Monocytes # (A) 0.76 10*3/uL (0.20-1.00); Monocytes % (A) 7.4 %; Neutrophils # (A) 7.44 10*3/uL (1.80-7.70); Neutrophils % (A) 72.7 %; Platelet Count 335 10*3/uL (140-440); RBC 4.66 10*6/uL (4.40-5.60); RDW 12.8 % (11.5-14.5); WBC 10.24 10*3/uL (4.50-10.00)
[2024-12-19 23:22] LABS: ALT 27 U/L (4-49); AST 26 U/L (17-59); African American GFR (CKD) >90 (>60 ml/min/1.73 sqM); Albumin 4.5 g/dL (3.5-5.0); Alkaline Phosphatase 68 U/L (38-126); Anion Gap 12 mmol/L; Blood Urea Nitrogen 19 mg/dL (9-20); Calcium 9.7 mg/dL (8.4-10.2); Carbon Dioxide 21 mmol/L (22-30); Chloride 105 mmol/L (98-107); Glucose 115 mg/dL (74-99); Magnesium 1.9 mg/dL (1.6-2.3); Non-African American GFR(CKD) 89 (>60 ml/min/1.73 sqM); Phosphorus 3.5 mg/dL (2.5-4.5); Potassium 4.2 mmol/L (3.5-5.1); Sodium 138 mmol/L (137-145); Total Bilirubin 0.7 mg/dL (0.2-1.3); Total Protein 7.5 g/dL (6.3-8.2)
[2024-12-19 23:23] LABS: INR 0.9 (<1.2); Partial Thromboplastin Time 23.8 sec (22.0-30.0); Prothrombin Time 10.3 sec (10.0-12.5)
[2024-12-19 23:30] LABS: NT-Pro-B-Type Natriuretic Pept 31 pg/mL
[2024-12-19 23:40] LABS: Appearance,Urine Clear (Clear); Bilirubin,Urine Negative (Negative); Blood,Urine Negative (Negative); Color,Urine Colorless; Glucose,Urine (UA) Negative (Negative); Ketones,Urine Negative (Negative); Leukocyte Esterase,Urine Negative (Negative); Nitrite,Urine Negative (Negative); PH, Urine 6.5 (5.0-8.0); Protein,Urine Negative (Negative); Specific Gravity,Urine 1.003 (1.001-1.035); Urobilinogen,Urine <2.0 mg/dL (<2.0)
--- NOTE | 2024-12-19 23:50 | CT ---
EXAM: CT Head Without Intravenous Contrast CLINICAL HISTORY: ITS.REASON CT Reason: ritchie TECHNIQUE: Axial computed tomography images of the head/brain without intravenous contrast. CTDI is 49.2 mGy and DLP is 1215.6 mGy-cm. This CT exam was performed using one or more of the following dose reduction techniques: automated exposure control, adjustment of the mA and/or kV according to patient size, and/or use of iterative reconstruction technique. COMPARISON: No relevant prior studies available. FINDINGS: No acute intracranial hemorrhage. No midline shift or mass effect. The territorial bañuelos-white matter differentiation is maintained throughout. Age-related cerebral volume loss. Periventricular and subcortical white matter hypoattenuation, consistent with chronic microangiopathy. The visualized orbits appear grossly unremarkable. The calvarium is intact. The visualized paranasal sinuses and mastoid air cells are grossly clear. IMPRESSION: No acute intracranial hemorrhage, midline shift, or mass effect.
--- NOTE | 2024-12-20 00:19 | CT ---
EXAM: CT Abdomen and Pelvis With Intravenous Contrast CLINICAL HISTORY: ITS.REASON CT Reason: pain TECHNIQUE: Axial computed tomography images of the abdomen and pelvis with intravenous contrast. CTDI is 24.1 mGy and DLP is 1216.7 mGy-cm. This CT exam was performed using one or more of the following dose reduction techniques: automated exposure control, adjustment of the mA and/or kV according to patient size, and/or use of iterative reconstruction technique. COMPARISON: No relevant prior studies available. FINDINGS: Lung bases: Unremarkable. No mass. No consolidation. ABDOMEN: Liver: Unremarkable. No mass. Gallbladder and bile ducts: Unremarkable. No calcified stones. No ductal dilation. Pancreas: Unremarkable. No mass. No ductal dilation. Spleen: Unremarkable. No splenomegaly. Adrenals: Unremarkable. No mass. Kidneys and ureters: Unremarkable. No solid mass. No hydronephrosis. Stomach and bowel: Diverticulosis, without acute diverticulitis. No small bowel obstruction. No free intraperitoneal air. PELVIS: Appendix: No acute appendicitis. Bladder: Unremarkable. No mass. Reproductive: Unremarkable as visualized. ABDOMEN and PELVIS: Intraperitoneal space: Unremarkable. No free air. No significant fluid collection. Bones/joints: Degenerative changes of the spine. No acute fracture. No dislocation. Soft tissues: Unremarkable. Vasculature: Atherosclerotic changes of the aorta. No abdominal aortic aneurysm. Lymph nodes: Unremarkable. No enlarged lymph nodes. IMPRESSION: No acute findings in the abdomen or pelvis.
--- NOTE | 2024-12-20 00:19 | CT ---
EXAM: CT Angiography Chest With Intravenous Contrast CLINICAL HISTORY: ITS.REASON CT Reason: pain TECHNIQUE: Axial computed tomographic angiography images of the chest with intravenous contrast. CTDI is 25.2 mGy and DLP is 463.3 mGy-cm. This CT exam was performed using one or more of the following dose reduction techniques: automated exposure control, adjustment of the mA and/or kV according to patient size, and/or use of iterative reconstruction technique. MIP reconstructed images were created and reviewed. COMPARISON: No relevant prior studies available. FINDINGS: Pulmonary arteries: Unremarkable. No pulmonary embolism. Aorta: Atherosclerotic changes of the aorta. No thoracic aortic aneurysm. Lungs: Unremarkable. No mass. No consolidation. Pleural space: Unremarkable. No significant effusion. No pneumothorax. Heart: Unremarkable. No cardiomegaly. No significant pericardial effusion. No evidence of RV dysfunction. Bones/joints: Degenerative changes of the spine. No acute fracture. No dislocation. Soft tissues: Unremarkable. Lymph nodes: Unremarkable. No enlarged lymph nodes. IMPRESSION: No pulmonary embolism.
[2024-12-20] MEDS: MORPHINE SULFATE 4 MG/ML SYRINGE IV STA (00:21)
[2024-12-20] MEDS: ONDANSETRON 4 MG/2 ML VIAL IVP STA (00:22)
[2024-12-20] MEDS ORDERED: ONDANSETRON 4 MG/2 ML VIAL IVP PRN (01:02)
[2024-12-20] MEDS ORDERED: MORPHINE SULFATE 4 MG/ML SYRINGE IV PRN (01:02)
[2024-12-20] MEDS ORDERED: NALOXONE 0.4 MG/ML 1 ML VIAL IV PRN (01:02)
[2024-12-20] MEDS: ASPIRIN 325 MG TAB PO STA (01:26)
[2024-12-20] MEDS: SODIUM CHLORIDE 0.9% 1,000 ML IV SCH (01:36)
--- NOTE | 2024-12-20 09:23 | US ---
EXAMINATION TYPE: US carotid duplex BILAT DATE OF EXAM: 12/20/2024 COMPARISON: 11/06/2023 CLINICAL INDICATION: Male, 69 years old with history of Stenosis; Dizziness TECHNIQUE: Grayscale, color Doppler and spectral Doppler evaluation of the bilateral carotid systems and vertebral arteries. Indirect Doppler criteria was utilized. FINDINGS: EXAM MEASUREMENTS: RIGHT: Peak Systolic Velocity (PSV) cm/sec ----- Right CCA: 115 ----- Right ICA: 88.1 ----- Right ECA: 125 ICA/CCA ratio: 0.7 RIGHT: End Diastole cm/sec ----- Right CCA: 18.8 ----- Right ICA: 18.8 ----- Right ECA: 10.4 LEFT: Peak Systolic Velocity (PSV) cm/sec ----- Left CCA: 73.5 ----- Left ICA: 116 ----- Left ECA: 129 ICA/CCA ratio: 1.6 LEFT: End Diastole cm/sec ----- Left CCA: 19.3 ----- Left ICA: 27.9 ----- Left ECA: 16.6 VERTEBRALS (direction of flow): Right Vertebral: Antegrade Left Vertebral: Antegrade Rhythm: Normal GIFT WRAPPER NOTES: limited scan due to due to vessel tortuosity no elevated velocities, plaque or significant stenosis seen bilaterally Color Doppler imaging shows patency with blood flow throughout the carotid artery. Spectral waveforms are within normal limits. IMPRESSION: No hemodynamically significant internal carotid artery stenosis on either side. Criteria for Assigning % of Stenosis / Diameter reduction (Estimation based on the indirect measurements of the internal carotid artery velocities (ICA PSV). 1. Normal (no stenosis)=ICA PSV < 180 cm/s: ratio < 2.0: ICA EDV<40 cm/s. 2. Less than 50% stenosis=ICA PSV < 180 cm/s: ratio < 2.0: ICA EDV<40 cm/s. 3. 50 to 69% stenosis=ICA PSV of 180 to 230 cm/s: ration 2.0 ? 4.0: ICA EDV 40-100 cm/s. PSV 125-180 cm/sec and ICA/CCA PSV Ratio ? 2.0 is also consistent with 50-69% stenosis 4. Greater than 70% stenosis to near occlusion= ICA PSV > 230 cm/s: ratio > 4.0: ICA EDV > 100 cm/s. 5. Near occlusion= ICA PSV velocities may be low or undetectable: variable ratio and ICA EDV. 6. Total occlusion=unable to detect flow. [facility], , 12/20/2024 9:20 AM
--- NOTE | 2024-12-20 10:10 | P.CRDCN ---
History of Present Illness History of present illness: HISTORY OF PRESENTING ILLNESS This is a pleasant 69-year-old male past medical history significant for hypertension and hyperlipidemia. He follows in the office with Dr. Suazo. We have been asked to see in consultation for chest pain. He states he woke up yesterday with numbness/tingling sensation in his left hand and arm. It progressed through the day and then moved to his left leg feeling the same. This prompted him to come to the hospital for evaluation. CT imaging was all unremarkable. The left leg tingling has subsided. He still endorses ongoing tingling in the left hand. No cervical imaging was done. He denies chest pain, shortness of breath, dizziness or palpitations. Bilateral carotid Doppler negative for significant internal carotid artery stenosis. DIAGNOSTICS EKG reveals sinus rhythm heart rate of 61. Telemetry tracings indicate sinus rhythm with no arrhythmia noted. Laboratory reviewed, WBC 10.2, hemoglobin 14.4, platelets 335, sodium 138, potassium 4.2, creatinine 0.84, troponin negative x 3. Current cardiac medications include amlodipine 10 mg at bedtime, losartan 50 mg at bedtime and aspirin 81 mg daily. Most recent echo October 25, 2024 reveals preserved LV systolic function with ejection fraction 55% with mild MR. Most recent stress test performed in the office November 03, 2023 he walked for 5 minutes 48 seconds had a hypertensive response to exercise with no ischemia. REVIEW OF SYSTEMS At the time of my exam: CONSTITUTIONAL: Denies fever or chills. CARDIOVASCULAR: Denies chest pain, shortness of breath, orthopnea, PND or palpitations. RESPIRATORY: Denies cough. GASTROINTESTINAL: Denies abdominal pain, diarrhea, constipation, nausea or vomiting. MUSCULOSKELETAL: Denies myalgias. NEUROLOGIC: complains of left hand tingling ENDOCRINE: Denies fatigue, weight change, polydipsia or polyurina. GENITOURINARY: Denies burning, hematuria or urgency with micturation. HEMATOLOGIC: Denies history of anemia or bleeding. PHYSICAL EXAMINATION Blood pressure 133/71 heart rate 60 afebrile and maintaining oxygen saturation on room air. CONSTITUTIONAL: No apparent distress. HEENT: Head is normocephalic. Pupils are equal, round. Sclerae anicteric. Mucous membranes of the mouth are moist. No JVD. No carotid bruit. CHEST EXAMINATION: Lungs are clear to auscultation. No chest wall tenderness is noted on palpation or with deep breathing. HEART EXAMINATION: Regular rate and rhythm. S1, S2 heard. No murmurs, gallops or rub. ABDOMEN: Soft, nontender. EXTREMITIES: 2+ peripheral pulses, no lower extremity edema and no calf tenderness. NEUROLOGIC EXAMINATION: Patient is awake, alert and oriented x3. ASSESSMENT Numbness and tingling of the left arm and hand Hypertension Dyslipidemia, intolerant to statins and refuses to try any other option or try Repatha PLAN An acute coronary event has been ruled out. No need to repeat echo as it was just done in the office. Consider cervical spine imaging. Continue with neurologic evaluation. Stable from a cardiac perspective, follow-up upon discharge with Dr. Suazo. Thank you kindly for this consultation. Nurse Practitioner note has been reviewed, I agree with a documented findings and plan of care. Patient was seen and examined. Past Medical History Past Medical History: Hypertension History of Any Multi-Drug Resistant Organisms: None Reported Past Surgical History: No Surgical Hx Reported Additional Past Anesthesia/Blood Transfusion Reaction / Comment(s): pt has never had surgery Past Psychological History: No Psychological Hx Reported Smoking Status: Former smoker Past Alcohol Use History: Occasional Additional Past Alcohol Use History / Comment(s): pt quit smoking in 2012, pt states he drinks a glass of wine daily Past Drug Use History: None Reported - Past Family History Mother Additional Family Medical History / Comment(s): pts mother is 91 and has no medical issues Medications and Allergies Home Medications Medication Instructions Recorded Confirmed Type Amoxic-Pot Clav 875-125Mg 1 tab PO BID 11/06/23 11/06/23 History [Augmentin 875-125] Aspirin EC [Ecotrin Low Dose] 81 mg PO HS 11/06/23 11/06/23 History Fluticasone Nasal [place] [Flonase 2 spray EA NOSTRIL DAILY 11/06/23 11/06/23 History Nasal [place]] Losartan Potassium 50 mg PO HS 11/06/23 11/06/23 History amLODIPine [Norvasc] 10 mg PO HS 11/06/23 11/06/23 History Atorvastatin [Lipitor] 40 mg PO HS 30 Days #30 tab 11/07/23 Rx Allergies Allergy/AdvReac Type Severity Reaction Status Date / Time amoxicillin [From Augmentin] Allergy Chest Pain Verified 12/19/24 22:27 clavulanic acid Allergy Chest Pain Verified 12/19/24 22:27 [From Augmentin] Physical Exam Vitals: Vital Signs Temp Pulse Pulse Resp BP BP Pulse Ox 12/20/24 07:00 98.2 F 60 16 133/71 98 12/20/24 02:29 97.4 F L 60 18 132/73 98 12/20/24 01:46 65 18 132/80 98 12/20/24 00:27 68 18 143/86 96 12/19/24 23:27 65 18 150/94 97 12/19/24 22:22 97.8 F 71 20 164/92 98 Intake and Output 12/19/24 12/20/24 12/20/24 22:59 06:59 14:59 Other: # Voids 1 Weight 92.079 kg 92.079 kg Results 12/19/24 22:51 12/19/24 22:51 Cardiac Enzymes 12/19/24 12/19/24 12/20/24 Range/Units 22:51 22:51 03:26 AST 26 (17-59) U/L Troponin I <0.012 <0.012 (0.000-0.034) ng/mL 12/20/24 Range/Units 04:51 AST (17-59) U/L Troponin I <0.012 (0.000-0.034) ng/mL Coagulation 12/19/24 Range/Units 22:51 PT 10.3 (10.0-12.5) sec APTT 23.8 (22.0-30.0) sec CBC 12/19/24 Range/Units 22:51 WBC 10.24 H (4.50-10.00) 10*3/uL RBC 4.66 (4.40-5.60) 10*6/uL Hgb 14.4 (13.0-17.0) g/dL Hct 42.5 (39.6-50.0) % Plt Count 335 (140-440) 10*3/uL Comprehensive Metabolic Panel 12/19/24 Range/Units 22:51 Sodium 138 (137-145) mmol/L Potassium 4.2 (3.5-5.1) mmol/L Chloride 105 (98-107) mmol/L Carbon Dioxide 21 L (22-30) mmol/L BUN 19 (9-20) mg/dL Creatinine 0.84 (0.66-1.25) mg/dL Glucose 115 H (74-99) mg/dL Calcium 9.7 (8.4-10.2) mg/dL AST 26 (17-59) U/L ALT 27 (4-49) U/L Alkaline Phosphatase 68 (38-126) U/L Total Protein 7.5 (6.3-8.2) g/dL Albumin 4.5 (3.5-5.0) g/dL Current Medications Generic Name Dose Route Start Last Admin Trade Name Freq PRN Reason Stop Dose Admin Aspirin 325 mg 12/21/24 09:00 Aspirin 325 Mg Tab PO DAILY JESS Sodium Chloride 1,000 mls @ 75 mls/hr 12/20/24 01:15 12/20/24 01:36 Saline 0.9% IV 75 mls/hr .[id number] JESS Administration Morphine Sulfate 4 mg 12/20/24 01:02 Morphine Sulfate 4 Mg/Ml Syringe IV Q4HR PRN Severe Pain (Scale 7 to 10) Naloxone HCl 0.2 mg 12/20/24 01:02 Naloxone 0.4 Mg/Ml 1 Ml Vial IV Q2M PRN Opioid Reversal Ondansetron HCl 4 mg 12/20/24 01:02 Ondansetron 4 Mg/2 Ml Vial IVP Q8HR PRN Nausea And Vomiting Intake and Output 12/19/24 12/20/24 12/20/24 22:59 06:59 14:59 Other: # Voids 1 Weight 92.079 kg 92.079 kg 12/19/24 22:51 12/19/24 22:51
--- NOTE | 2024-12-20 11:59 | P.CNNES ---
History of Present Illness Consult date: 12/20/24 Requesting physician: Yamil Galvan Reason for Consult: neuralgia History of Present Illness: This is a 69-year-old gentleman who presents to the emergency department because of tingling over the left side. Patient states that yesterday upon waking up at 6:30 in the morning he noticed that he has tingling on the left hand as well as numbness but predominantly tingling. His last normal state was at 12 PM. He denies any neck pain associate with this. Then later he noticed that he has tingling in the left lower extremity. Patient took aspirin 325 mg once. He denies any weakness. Denies any visual disturbance. Denies any difficulty swallowing. Later he noticed that his left neck was sore. Again he denies any neck pain early in the morning. He does have underlying history of hypertension and he says is controlled and he is on medication. He is on also on aspirin 81 mg daily. Denies any tobacco use, illicit drug use. Denies any history of stroke any A-fib. Today he feels the tingling has drastically improved and he only feels tingling over the digits tips of the left hand. Also yesterday seems that he had some chest pain which has resolved today. Some of the workup during this hospital visit consisted of: I reviewed the lab workup. CT of the head is reported as no acute intracranial hemorrhage, midline shift or mass effect. I personally reviewed the CT and agree with the report Carotid duplex is reported as no hemodynamically significant internal carotid artery stenosis on either side. Review of Systems As per HPI. Past Medical History Past Medical History: Hypertension History of Any Multi-Drug Resistant Organisms: None Reported Past Surgical History: No Surgical Hx Reported Additional Past Anesthesia/Blood Transfusion Reaction / Comment(s): pt has never had surgery Past Psychological History: No Psychological Hx Reported Smoking Status: Former smoker Past Alcohol Use History: Occasional Additional Past Alcohol Use History / Comment(s): pt quit smoking in 2012, pt states he drinks a glass of wine daily Past Drug Use History: None Reported - Past Family History Mother Additional Family Medical History / Comment(s): pts mother is 91 and has no medical issues Medications and Allergies Home Medications Medication Instructions Recorded Confirmed Type Aspirin EC [Ecotrin Low Dose] 81 mg PO HS 11/06/23 12/20/24 History Losartan Potassium 50 mg PO HS 11/06/23 12/20/24 History amLODIPine [Norvasc] 10 mg PO HS 11/06/23 12/20/24 History Allergies Allergy/AdvReac Type Severity Reaction Status Date / Time amoxicillin [From Augmentin] AdvReac Chest Pain Verified 12/20/24 11:13 clavulanic acid AdvReac Chest Pain Verified 12/20/24 11:13 [From Augmentin] Physical Examination - Vital Signs Vital Signs: Vital Signs Temp Pulse Pulse Resp BP BP Pulse Ox 12/20/24 08:30 16 12/20/24 07:00 98.2 F 60 16 133/71 98 12/20/24 02:29 97.4 F L 60 18 132/73 98 12/20/24 01:46 65 18 132/80 98 12/20/24 00:27 68 18 143/86 96 12/19/24 23:27 65 18 150/94 97 12/19/24 22:22 97.8 F 71 20 164/92 98 Intake and Output 12/19/24 12/20/24 12/20/24 22:59 06:59 14:59 Intake Total 118 Balance 118 Intake: Oral 118 Other: Voiding Method Toilet # Voids 1 Weight 92.079 kg 92.079 kg GENERAL: The patient is lying in bed and is not in acute distress. NEUROLOGICAL: Higher mental function: The patient is awake, alert, oriented to self, place and time. Patient is following commands. No aphasia and no neglect. Cranial nerves: The pupils are round, equal and reactive to light and accommodation. Visual lord are full to confrontation throughout. Extraocular movement is intact no nystagmus is noted. Facial sensation is normal to touch throughout. The facial strength is normal throughout. Hearing is normal bilaterally to hand rub. Tongue is midline and moved [id number] without any difficulty. No dysarthria is noted. Shoulder shrug is normal bilaterally. Motor: The strength is 5 over 5 throughout. Normal tone and bulk. Cerebellum: Normal finger to nose heel to lara bilaterally. Sensation: Sensation is normal to touch throughout. Reflexes (right/left): 2+ throughout except patellar are 1+. Plantars are downgoing bilaterally. Results - Laboratory Findings CBC and BMP: 12/19/24 22:51 12/19/24 22:51 Abnormal Lab Findings: Abnormal Labs 12/19/24 12/19/24 22:51 22:51 WBC 10.24 H MPV 9.1 L Carbon Dioxide 21 L Glucose 115 H Assessment and Plan Assessment: This is a 69-year-old gentleman who presents the emergency department because of tingling predominately over the left hand early in the morning upon waking up associate with some numbness then later he noticed that he had tingling over the left lower extremity. Likely transient ischemic attack Acute chest pain Hypertension Plan: Patient is resumed on his home medication of aspirin 81 mg. I recommend starting the patient on Plavix 75 mg daily but patient states that he wants to research the medication before being started on it. Once started on I recommend dual antiplatelet of aspirin 81 mg and Plavix 75 mg for 21 days and after 21 days stop aspirin but continue Plavix indefinitely. Patient refuses to be on statin. Recommend MRI of the brain Lipid panel is ordered and is pending Continue neurochecks Cardiac monitoring PT OT and WINDING RACK OPERATOR are consulted Will defer the rest of the medical management to primary other specialist For DVT prophylaxis the patient is ambulatory and does not need to be on any anticoagulation from a neurology perspective Plan discussed with the patient and the resident from the primary team Thank you for the consultation Time with Patient: Greater than 30
--- NOTE | 2024-12-20 14:29 | P.HPIM ---
History of Present Illness H&P Date: 12/20/24 Patient is a 69-year-old male with a history of hypertension in the clinic with complaint of tingling sensation in in the left arm and left leg which started yesterday morning. Patient denies numbness or weakness, headache, nausea, vomiting, dizziness, fever, chills. Patient denies any accident or trauma to the head recently. Additionally, patient also complained of left-sided chest pain which has resolved by the time this interview was conducted. Patient also reports resolution of tingling in his left leg and currently he is only experiencing tingling sensation in the fingertips of his left hand. Patient reports no previous episode of stroke. He is not on any blood thinner, no history of blood clots. Brain CT done in the ER is unremarkable. EKG shows normal sinus rhythm with ventricular rate of 61 bpm, [place] interval of 149, QRS duration of 99 ms, QTc [address] or T wave elevations noted. Chest CTA was negative for pulm embolism. Carotid Doppler study was negative for bilateral stenosis. Abdomen and pelvis CT is unremarkable. Lab work shows WBC 10.24, hemoglobin 14.4, platelet count 334, sodium 138, potassium 4.2, chloride 105, bicarb 21, BUN 19, creatinine 0.84, EGFR 89, glucose 115, calcium 9.7, phosphorus 3.5, magnesium 1.9, AST 26, ALT 27, NT proBNP 31, albumin 4.5. Troponin I less than 0.012 x 3. Urinalysis is unremarkable. Of note, patient did have episode of left-sided numbness and paresthesia in October 2023. Brain MRI was negative for mass or lesion. His symptoms resolved spontaneously. Review of systems: Pertinent positives and negatives as discussed in HPI, a complete review of systems was performed and all other systems are negative. Social history: Former smoker Physical examination: Vital signs reviewed General: non toxic, no distress, appears at stated age, overweight Derm: no unusual rashes/lesions, warm Head: atraumatic, normocephalic, symmetric Eyes: EOMI, no lid lag, anicteric sclera, pupils equal round reactive to light ENT: Nose and ears atraumatic Neck: No cervical lymphadenopathy, trachea midline, supple Mouth: no lip lesion, mucus membranes moist Cardiovascular: S1S2 reg, no murmur, positive dorsalis pedis pulse bilateral, no edema Lungs: CTA bilateral, no rhonchi, no rales, no accessory muscle use Abdominal: soft, nontender to palpation, no guarding Ext: muscle strength 5 out of 5 in all 4 extremities grossly, no gross muscle atrophy, no contractures, Neuro: CN II-XI grossly intact, no gross focal neuro deficits Psych: Alert, oriented, appropriate affect Assessment/Plan: Patient is a 69-year-old male with a history of hypertension in the clinic with complaint of tingling sensation in in the left arm and left leg which started yesterday morning. . Case was discussed with the Emergency Room provider and decision was made to admit the patient for to rule out stroke and ACS. Labs and images: Brain CT done in the ER is unremarkable. EKG shows normal sinus rhythm with ventricular rate of 61 bpm, [place] interval of 149, QRS duration of 99 ms, QTc [address] or T wave elevations noted. Chest CTA was negative for pulm embolism. Carotid Doppler study was negative for bilateral stenosis. Abdomen and pelvis CT is unremarkable. Lab work shows WBC 10.24, hemoglobin 14.4, platelet count 334, sodium 138, potassium 4.2, chloride 105, bicarb 21, BUN 19, creatinine 0.84, EGFR 89, glucose 115, calcium 9.7, phosphorus 3.5, magnesium 1.9, AST 26, ALT 27, NT proBNP 31, albumin 4.5. Troponin I less than 0.012 x 3. Urinalysis is unremarkable. Active: #Tingling in left upper and lower extremity, rule out CVA versus TIA versus radiculopathy NIH stroke scale [address] is unremarkable Order MRI, to be done likely tomorrow Continue with aspirin and statin Order MRI of the C-spine Neurochecks Consult neurology #Chest pain, rule out ACS Troponin I trending negative Consult cardiology Most recent echocardiogram was done at cardiology office on October 25, 2024 which revealed preserved LV systolic function with EF of 55% with mild MR. Stress test done on November 03, 2023 was negative Continue with aspirin and statin No need to repeat echocardiogram as this was done recently #History of hypertension Resume amlodipine 10 mg p.o. at bedtime DVT prophylaxis: Lovenox subcu GI prophylaxis: None F: None E: Replete as needed N: Regular diet A: Ambulatory at baseline The patient is admitted with an anticipated more than than 2 midnight stay for evaluation of stroke CODE STATUS: Full code Discussed with: Patient Anticipated discharge place: Home Dictation was produced using [employer] dictation software. Please excuse any grammatical, word or spelling errors. Past Medical History Past Medical History: Hypertension History of Any Multi-Drug Resistant Organisms: None Reported Past Surgical History: No Surgical Hx Reported Additional Past Anesthesia/Blood Transfusion Reaction / Comment(s): pt has never had surgery Past Psychological History: No Psychological Hx Reported Smoking Status: Former smoker Past Alcohol Use History: Occasional Additional Past Alcohol Use History / Comment(s): pt quit smoking in 2012, pt states he drinks a glass of wine daily Past Drug Use History: None Reported - Past Family History Mother Additional Family Medical History / Comment(s): pts mother is 91 and has no medical issues Medications and Allergies Home Medications Medication Instructions Recorded Confirmed Type Aspirin EC [Ecotrin Low Dose] 81 mg PO HS 11/06/23 12/20/24 History Losartan Potassium 50 mg PO HS 11/06/23 12/20/24 History amLODIPine [Norvasc] 10 mg PO HS 11/06/23 12/20/24 History Allergies Allergy/AdvReac Type Severity Reaction Status Date / Time amoxicillin [From Augmentin] AdvReac Chest Pain Verified 12/20/24 11:13 clavulanic acid AdvReac Chest Pain Verified 12/20/24 11:13 [From Augmentin] Physical Exam Vitals: Vital Signs Temp Pulse Pulse Resp BP BP Pulse Ox 12/20/24 07:00 98.2 F 60 16 133/71 98 12/20/24 02:29 97.4 F L 60 18 132/73 98 12/20/24 01:46 65 18 132/80 98 12/20/24 00:27 68 18 143/86 96 12/19/24 23:27 65 18 150/94 97 12/19/24 22:22 97.8 F 71 20 164/92 98 Intake and Output 12/19/24 12/20/24 12/20/24 22:59 06:59 14:59 Other: # Voids 1 Weight 92.079 kg 92.079 kg Results CBC & Chem 7: 12/19/24 22:51 12/19/24 22:51 Labs: Abnormal Lab Results - Last 24 Hours (Table) 05/04/25 05/04/25 Range/Units 22:51 22:51 WBC 10.24 H (4.50-10.00) 10*3/uL MPV 9.1 L (9.5-12.2) fL Carbon Dioxide 21 L (22-30) mmol/L Glucose 115 H (74-99) mg/dL
[2024-12-20] MEDS: ENOXAPARIN 40 MG/0.4 ML SYRINGE SQ SCH (17:30)
[2024-12-20] MEDS: amLODIPine 10 MG TAB PO SCH (20:47)
[2024-12-20] MEDS: ATORVASTATIN 40 MG TAB PO SCH (20:47)
[2024-12-20] MEDS: ASPIRIN 81 MG PO SCH (20:47)
[2024-12-20] MEDS: LOSARTAN 50 MG TAB PO SCH (22:19)
[2024-12-21 08:01] VITALS: RESP 16
[2024-12-21 08:36] LABS: ALT 21 U/L (10-49); AST 21 U/L (14-35); Albumin 3.9 g/dL (3.8-4.9); Albumin/Globulin Ratio 1.62 Ratio (1.60-3.17); Alkaline Phosphatase 62 U/L (41-126); Blood Urea Nitrogen 17.1 mg/dL (9.0-27.0); Calcium 8.8 mg/dL (8.7-10.3); Carbon Dioxide 21.2 mmol/L (21.6-31.8); Chloride 107 mmol/L (96-109); Chol/HDL Ratio 5.58 Ratio; Globulin 2.4 g/dL (1.6-3.3); Glucose 101 mg/dL (70-110); LDL Cholesterol,Calculated 141.8 mg/dL (0.0-131.0); Magnesium 2.1 mg/dL (1.5-2.4); Phosphorus 3.8 mg/dL (2.4-5.1); Potassium 4.2 mmol/L (3.5-5.5); Sodium 138 mmol/L (135-145); Total Bilirubin 0.4 mg/dL (0.3-1.2); Total Protein 6.3 g/dL (6.2-8.2)
[2024-12-21 08:37] LABS: Basophils # (A) 0.05 X 10*3/uL (0.00-0.10); Basophils % (A) 0.7 %; Eosinophils % (A) 2.7 %; HCT 43.8 % (39.6-50.0); HGB 14.4 g/dL (13.0-17.0); Lymphocytes # (A) 3.57 X 10*3/uL (0.90-5.00); Lymphocytes % (A) 48.8 %; MCH 30.4 pg (27.0-32.0); MCHC 32.9 g/dL (32.0-37.0); MCV 92.6 FL (80.0-97.0); Mean Platelet Volume 9.6 FL (9.5-12.2); Monocytes # (A) 0.61 X 10*3/uL (0.20-1.00); Monocytes % (A) 8.3 %; NRBC Per 100 WBC 0 X 10*3/uL (0.00-0.01); Neutrophils # (A) 2.87 X 10*3/uL (1.80-7.70); Neutrophils % (A) 39.2 %; Platelet Count 319 X 10*3/uL (140-440); RBC 4.73 X 10*6/uL (4.40-5.60); RDW 12.9 % (11.5-14.5); WBC 7.32 X 10*3/uL (4.50-10.00)
[2024-12-21] MEDS ORDERED: ASPIRIN 325 MG TAB PO SCH (09:00)
--- NOTE | 2024-12-21 10:51 | P.PN ---
Subjective HISTORY OF PRESENT ILLNESS: This is a pleasant 69-year-old male past medical history significant for hypertension and hyperlipidemia. He follows in the office with Dr. Suazo. We have been asked to see in consultation for chest pain. He states he woke up yesterday with numbness/tingling sensation in his left hand and arm. It progressed through the day and then moved to his left leg feeling the same. This prompted him to come to the hospital for evaluation. CT imaging was all unremarkable. The left leg tingling has subsided. He still endorses ongoing tingling in the left hand. No cervical imaging was done. He denies chest pain, shortness of breath, dizziness or palpitations. Bilateral carotid Doppler negative for significant internal carotid artery stenosis. DIAGNOSTICS EKG reveals sinus rhythm heart rate of 61. Telemetry tracings indicate sinus rhythm with no arrhythmia noted. Laboratory reviewed, WBC 10.2, hemoglobin 14.4, platelets 335, sodium 138, potassium 4.2, creatinine 0.84, troponin negative x 3. Current cardiac medications include amlodipine 10 mg at bedtime, losartan 50 mg at bedtime and aspirin 81 mg daily. Most recent echo October 25, 2024 reveals preserved LV systolic function with ejection fraction 55% with mild MR. Most recent stress test performed in the office November 03, 2023 he walked for 5 minutes 48 seconds had a hypertensive response to exercise with no ischemia. 12/21/2024 Patient examined this morning at the bedside. Patient currently denies chest pain or pressure. He denies shortness of breath. He states the tingling in his arm has completely resolved. He has been evaluated by neurology and MRI is pending. PHYSICAL EXAM: VITAL SIGNS: Reviewed. GENERAL: Well-developed in no acute distress. NECK: Supple. No JVD or thyromegaly LUNGS: Respirations even and unlabored. Lungs essentially clear to auscultation bilaterally. HEART: Regular rate and rhythm. S1 and S2 heard. EXTREMITIES: Normal range of motion. No clubbing or cyanosis. Peripheral pulses intact. No lower extremity edema ASSESSMENT: Numbness and tingling of the left arm and hand, possible TIA, resolved Hypertension Dyslipidemia, intolerant to statins and refuses to try any other option or try Repatha PLAN: Continue current cardiac medications Continue telemetry monitoring Neurology following. MRI of the brain and cervical spine pending Further recommendations pending patient course Nurse practitioner note has been reviewed by physician. Signing provider agrees with the documented findings, assessment, and plan of care documented by [employer] WASTE TECHNICIAN as a scribe. Objective - Vital Signs Vital signs: Vital Signs Temp 97.8 F 12/21/24 07:00 Pulse 59 L 12/21/24 07:00 Resp 16 12/21/24 07:00 BP 134/76 12/21/24 07:00 Pulse Ox 97 12/21/24 07:00 FiO2 Intake & Output 12/20/24 12/21/24 12/21/24 18:59 06:59 18:59 Intake Total 358 360 Balance 358 360 Intake: Oral 358 360 Other: Voiding Method Toilet Toilet # Voids 4 1 - Labs CBC & Chem 7: 12/21/24 04:32 12/21/24 04:32 Labs: Abnormal Lab Results - Last 24 Hours (Table) 12/21/24 Range/Units 04:32 Carbon Dioxide 21.2 L (21.6-31.8) mmol/L Cholesterol 202.00 H (0.00-200.00) mg/dL LDL Cholesterol, Calc 141.8 H (0.0-131.0) mg/dL HDL Cholesterol 36.20 L (40.00-60.00) mg/dL
--- NOTE | 2024-12-21 15:35 | P.PN ---
Subjective Progress Note Date: 12/21/24 I am following up with the patient and patient feels he is back to baseline. Denies any new neurological issues. He does not want to be on any statin and does not want to start Plavix. He wants to pursue with the MRI. Objective - Vital Signs Vital signs: Vital Signs Temp 98.0 F 12/21/24 14:27 Pulse 65 12/21/24 14:27 Resp 16 12/21/24 14:27 BP 125/66 12/21/24 14:27 Pulse Ox 94 L 12/21/24 14:27 FiO2 Intake & Output 12/20/24 12/21/24 12/21/24 18:59 06:59 18:59 Intake Total 358 720 Balance 358 720 Intake: Oral 358 720 Other: Voiding Method Toilet Toilet # Voids 4 1 3 # Bowel Movements 2 - Exam GENERAL: The patient is lying in bed and is not in acute distress. NEUROLOGICAL: Higher mental function: The patient is awake, alert, oriented to self, place and time. Patient is following commands. No aphasia and no neglect. Cranial nerves: The pupils are round, equal and reactive to light and accommodation. Visual lord are full to confrontation throughout. Extraocular movement is intact no nystagmus is noted. Facial sensation is normal to touch throughout. The facial strength is normal throughout. Hearing is normal bilaterally to hand rub. Tongue is midline and moved [id number] without any difficulty. No dysarthria is noted. Shoulder shrug is normal bilaterally. Motor: The strength is 5 over 5 throughout. Normal tone and bulk. Cerebellum: Normal finger to nose heel to lara bilaterally. Sensation: Sensation is normal to touch throughout. Some of the workup during this hospital visit consisted of: I reviewed the lab workup. Lipid panel is triglyceride of 120, cholesterol is 202, LDL is 141 and HDL is 36. CT of the head is reported as no acute intracranial hemorrhage, midline shift or mass effect. I personally reviewed the CT and agree with the report Carotid duplex is reported as no hemodynamically significant internal carotid artery stenosis on either side. - Labs CBC & Chem 7: 12/21/24 04:32 12/21/24 04:32 Labs: Abnormal Lab Results - Last 24 Hours (Table) 12/21/24 Range/Units 04:32 Carbon Dioxide 21.2 L (21.6-31.8) mmol/L Cholesterol 202.00 H (0.00-200.00) mg/dL LDL Cholesterol, Calc 141.8 H (0.0-131.0) mg/dL HDL Cholesterol 36.20 L (40.00-60.00) mg/dL Assessment and Plan Assessment: This is a 69-year-old gentleman who presents the emergency department because of tingling predominately over the left hand early in the morning upon waking up associate with some numbness then later he noticed that he had tingling over the left lower extremity. Likely transient ischemic attack Acute chest pain Hypertension Plan: Patient is resumed on his home medication of aspirin 81 mg. Patient is refusing to be on Plavix or statin. Pending MRI of the brain and cervical spine. Continue neurochecks Cardiac monitoring PT OT and END STAPLER are consulted Will defer the rest of the medical management to primary other specialist For DVT prophylaxis the patient is ambulatory and does not need to be on any anticoagulation from a neurology perspective Plan discussed with the patient and the resident from the primary team Time with Patient: Less than 30
--- NOTE | 2024-12-21 15:49 | P.PN ---
Subjective Progress Note Date: 12/21/24 Hospital course: Patient is a 69-year-old male with a history of hypertension in the clinic with complaint of tingling sensation in in the left arm and left leg which started yesterday morning. Patient denies numbness or weakness, headache, nausea, vomiting, dizziness, fever, chills. Patient denies any accident or trauma to the head recently. Additionally, patient also complained of left-sided chest pain which has resolved by the time this interview was conducted. Patient also reports resolution of tingling in his left leg and currently he is only experiencing tingling sensation in the fingertips of his left hand. Patient reports no previous episode of stroke. He is not on any blood thinner, no history of blood clots. Brain CT done in the ER is unremarkable. EKG shows normal sinus rhythm with ventricular rate of 61 bpm, NM interval of 149, QRS duration of 99 ms, QTc [address] or T wave elevations noted. Chest CTA was negative for pulm embolism. Carotid Doppler study was negative for bilateral stenosis. Abdomen and pelvis CT is unremarkable. Lab work shows WBC 10.24, hemoglobin 14.4, platelet count 334, sodium 138, potassium 4.2, chloride 105, bicarb 21, BUN 19, creatinine 0.84, EGFR 89, glucose 115, calcium 9.7, phosphorus 3.5, magnesium 1.9, AST 26, ALT 27, NT proBNP 31, albumin 4.5. Troponin I less than 0.012 x 3. Urinalysis is unremarkable. Of note, patient did have episode of left-sided numbness and paresthesia in October 2023. Brain MRI was negative for mass or lesion. His symptoms resolved spontaneously. 12/21/2024 Patient seen and examined at the bedside. No acute events overnight. Patient reports that he can no longer have tingling sensation in his left upper or lower extremities. He feels like he is back to his baseline. He continues to deny taking statin and Plavix. MRI brain and cervical spine scheduled for tomorrow. Lab work is unremarkable. Total cholesterol 2020.00, LDL 141.8, VLDL 44, HDL 36.2 Physical examination: Vital signs reviewed General: non toxic, no distress, appears at stated age, overweight Derm: no unusual rashes/lesions, warm Head: atraumatic, normocephalic, symmetric Eyes: EOMI, no lid lag, anicteric sclera, pupils equal round reactive to light ENT: Nose and ears atraumatic Neck: No cervical lymphadenopathy, trachea midline, supple Mouth: no lip lesion, mucus membranes moist Cardiovascular: S1S2 reg, no murmur, positive dorsalis pedis pulse bilateral, no edema Lungs: CTA bilateral, no rhonchi, no rales, no accessory muscle use Abdominal: soft, nontender to palpation, no guarding Ext: muscle strength 5 out of 5 in all 4 extremities grossly, no gross muscle atrophy, no contractures, Neuro: CN II-XI grossly intact, no gross focal neuro deficits Psych: Alert, oriented, appropriate affect Assessment/Plan: #Tingling in left upper and lower extremity, rule out CVA versus TIA versus radiculopathy NIH stroke scale [address] is unremarkable Order MRI, to be done likely tomorrow Continue with aspirin and statin Order MRI of the C-spine, likely tomorrow Neurochecks Neurology on board, note reviewed #Chest pain, rule out ACS Troponin I trending negative Cardiology on board, note reviewed Most recent echocardiogram was done at cardiology office on October 25, 2024 which revealed preserved LV systolic function with EF of 55% with mild MR. Stress test done on November 03, 2023 was negative Continue with aspirin and statin No need to repeat echocardiogram as this was done recently #History of hypertension Resume amlodipine 10 mg p.o. at bedtime DVT prophylaxis: Lovenox subcu GI prophylaxis: None F: None E: Replete as needed N: Regular diet A: Ambulatory at baseline CODE STATUS: Full code Discussed with: Patient Anticipated discharge place: Home Dictation was produced using [employer] dictation software. Please excuse any grammatical, word or spelling errors. Objective - Vital Signs Vital signs: Vital Signs Temp 98.0 F 12/21/24 14:27 Pulse 65 12/21/24 14:27 Resp 16 12/21/24 14:27 BP 125/66 12/21/24 14:27 Pulse Ox 94 L 12/21/24 14:27 FiO2 Intake & Output 12/20/24 12/21/24 12/21/24 18:59 06:59 18:59 Intake Total 358 720 Balance 358 720 Intake: Oral 358 720 Other: Voiding Method Toilet Toilet # Voids 4 1 3 # Bowel Movements 2 - Labs CBC & Chem 7: 05/06/25 04:32 12/21/24 04:32 Labs: Abnormal Lab Results - Last 24 Hours (Table) 12/21/24 Range/Units 04:32 Carbon Dioxide 21.2 L (21.6-31.8) mmol/L Cholesterol 202.00 H (0.00-200.00) mg/dL LDL Cholesterol, Calc 141.8 H (0.0-131.0) mg/dL HDL Cholesterol 36.20 L (40.00-60.00) mg/dL
[2024-12-21] MEDS: LOSARTAN 50 MG TAB PO SCH (21:04)
[2024-12-22 08:28] VITALS: BP 136/76; PULSE 72; TEMP 98.1
--- NOTE | 2024-12-22 10:38 | P.PN ---
Subjective HISTORY OF PRESENT ILLNESS: This is a pleasant 69-year-old male past medical history significant for hypertension and hyperlipidemia. He follows in the office with Dr. Suazo. We have been asked to see in consultation for chest pain. He states he woke up yesterday with numbness/tingling sensation in his left hand and arm. It progressed through the day and then moved to his left leg feeling the same. This prompted him to come to the hospital for evaluation. CT imaging was all unremarkable. The left leg tingling has subsided. He still endorses ongoing tingling in the left hand. No cervical imaging was done. He denies chest pain, shortness of breath, dizziness or palpitations. Bilateral carotid Doppler negative for significant internal carotid artery stenosis. DIAGNOSTICS EKG reveals sinus rhythm heart rate of 61. Telemetry tracings indicate sinus rhythm with no arrhythmia noted. Laboratory reviewed, WBC 10.2, hemoglobin 14.4, platelets 335, sodium 138, potassium 4.2, creatinine 0.84, troponin negative x 3. Current cardiac medications include amlodipine 10 mg at bedtime, losartan 50 mg at bedtime and aspirin 81 mg daily. Most recent echo October 25, 2024 reveals preserved LV systolic function with ejection fraction 55% with mild MR. Most recent stress test performed in the office November 03, 2023 he walked for 5 minutes 48 seconds had a hypertensive response to exercise with no ischemia. 12/21/2024 Patient examined this morning at the bedside. Patient currently denies chest pain or pressure. He denies shortness of breath. He states the tingling in his arm has completely resolved. He has been evaluated by neurology and MRI is pending. 12/22/2024 Patient examined this morning at bedside. Patient currently denies chest pain or pressure. He denies shortness of breath. Vital signs are stable. Telemetry reveals sinus mechanism. PHYSICAL EXAM: VITAL SIGNS: Reviewed. GENERAL: Well-developed in no acute distress. NECK: Supple. No JVD or thyromegaly LUNGS: Respirations even and unlabored. Lungs essentially clear to auscultation bilaterally. HEART: Regular rate and rhythm. S1 and S2 heard. EXTREMITIES: Normal range of motion. No clubbing or cyanosis. Peripheral pulses intact. No lower extremity edema ASSESSMENT: Numbness and tingling of the left arm and hand, possible TIA, resolved Hypertension Dyslipidemia, intolerant to statins and refuses to try any other option or try Repatha PLAN: Continue current cardiac medications Continue telemetry monitoring Neurology following. MRI of the brain and cervical spine pending Further recommendations pending patient course Nurse practitioner note has been reviewed by physician. Signing provider agrees with the documented findings, assessment, and plan of care documented by COLLEGE ARCHIVIST as a scribe. Objective - Vital Signs Vital signs: Vital Signs Temp 98.1 F 12/22/24 07:00 Pulse 72 12/22/24 07:00 Resp 16 12/22/24 07:00 BP 136/76 12/22/24 07:00 Pulse Ox 95 12/22/24 07:00 FiO2 Intake & Output 12/21/24 12/22/24 12/22/24 18:59 06:59 18:59 Intake Total 1310 Balance 1310 Intake: Oral 1310 Other: # Voids 3 2 # Bowel Movements 2 - Labs CBC & Chem 7: 12/21/24 04:32 12/21/24 04:32
--- NOTE | 2024-12-22 13:38 | MR ---
EXAMINATION TYPE: MR brain/cspine wo DATE OF EXAM: 12/22/2024 COMPARISON: CT brain 3 days earlier. HISTORY: Lt side weakness, rule out stroke. Neck pain. TECHNIQUE: Multiplanar, multisequence imaging of the brain and brainstem and cervical spine are all p erformed without IV contrast. FINDINGS: BRAIN: Diffusion weighted images demonstrate no evidence of a recent infarct or other diffusion abnormality. The ventricular system and cisternal spaces are normal in size and appearance. The brain volume is a ge appropriate. There are multifocal areas of T2 hyperintensity seen throughout the white matter bila terally most prominent periventricular levels. The lesions are nonspecific in appearance and distribu tion. Midline structures demonstrate normal morphology. Some prominent CSF posterior aspect posterior fossa is redemonstrated suspect arachnoid cyst or mel cisterna magna. The craniocervical junction appear s within normal limits. Normal vascular flow voids are present. The visualized sinuses are clear and the globes are intact. IMPRESSION: No MRI evidence for a recent infarct. Mild chronic small vessel ischemic changes are pres ent. MRI CERVICAL SPINE: FINDINGS: Sagittal images of the cervical spine show the craniocervical junction to appear within nor mal limits. The cervical and upper thoracic spinal cord is normal in course, caliber, and signal. V ertebral alignment is anatomic. The vertebral body heights are normal. Mild to moderate disc space n arrowing and spurring C5-C6 and C6-C7 levels is present. The bone marrow signal intensity is within normal limits. Axial images at C2-C3 level appear within normal limits. Axial images at C3-C4 level show right uncovertebral facet degenerative change causing asymmetric mod erate right-sided neural foraminal narrowing. Axial images at C4-C5 level show uncovertebral facet degenerative changes bilaterally causing mild-to -moderate bilateral neural foraminal narrowing. Axial images at C5-C6 level show left paracentral spur disc complex mildly efface the anterior thecal sac and uncovertebral facet degenerative change causing moderate bilateral neural foraminal narrowin g. Axial images at C6-C7 level shows a left paracentral disc protrusion minimally effacing anterior thec al sac and uncovertebral facet degenerative change causing asymmetric moderate left-sided neural fora rene narrowing. Axial images at C7-T1 level appear within normal limits. IMPRESSION: Multilevel degenerative changes in the cervical spine as detailed above. [facility], , 12/22/2024 1:36 PM
--- NOTE | 2024-12-22 18:03 | P.DS ---
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 Patient denies numbness or weakness, headache, nausea, vomiting, dizziness, fever, chills. Patient denies any accident or trauma to the head recently. Additionally, patient also complained of left-sided chest pain which has resolved by the time this interview was conducted. Patient also reports resolution of tingling in his left leg and currently he is only experiencing tingling sensation in the fingertips of his left hand. Patient reports no previous episode of stroke. He is not on any blood thinner, no history of blood clots. Brain CT done in the ER is unremarkable. EKG shows normal sinus rhythm with ventricular rate of 61 bpm, [place] interval of 149, QRS duration of 99 ms, QTc [address] or T wave elevations noted. Chest CTA was negative for pulm embolism. Carotid Doppler study was negative for bilateral stenosis. Abdomen and pelvis CT is unremarkable. Lab work shows WBC 10.24, hemoglobin 14.4, platelet count 334, sodium 138, potassium 4.2, chloride 105, bicarb 21, BUN 19, creatinine 0.84, EGFR 89, glucose 115, calcium 9.7, phosphorus 3.5, magnesium 1.9, AST 26, ALT 27, NT proBNP 31, albumin 4.5. Tr oponin I less than 0.012 x 3. Urinalysis is unremarkable. Of note, patient did have episode of left-sided numbness and paresthesia in October 2023. Brain MRI was negative for mass or lesion. His symptoms resolved spontaneously. Cardiology and neurology were consulted on this admission. ACS was ruled out by cardiology. MRI of the brain and cervical spine showed no evidence of CVA or mass lesions in the brain. There are multilevel degenerative changes noted in the cervical spine. Patient reports complete resolution of tingling in his left upper and lower extremity. Patient is hemodynamically stable and optimized for discharge by neurology. Patient is discharged on statin. He will be following up with orthopedic spine surgeon on discharge. Discharge disposition: Home Vital signs reviewed. Gen: in no apparent distress, resting comfortably in bed Eyes: PERRLA, EOMI, no scleral injection or icterus HENT: normocephalic, atraumatic, good hearing acuity, moist mucous membranes Neck: full range of motion Resp: CTAB, no rales, rhonchi, or wheezes CVS: normal S1 and S2, no murmurs, rubs or gallops, no edema GI: soft, NTTP, ND, no hepatosplenomegaly : no suprapubic tenderness, no CVAT, alfonso catheter [is/not] present MSK: no clubbing, no cyanosis, no noted contractures of extremities Skin: no noted rashes, petechiae; temperature of skin is appropriate Neuro: moving all extremities without signs of weakness, CN II-XII intact Psych: cooperative, euthymic mood, insight and judgment intact Dictation was produced using [employer] dictation software. Please excuse any grammatical, word or spelling errors. Patient Condition at Discharge: Stable Plan - Discharge Summary Discharge Rx Participant: No New Discharge Prescriptions: New Atorvastatin [Lipitor] 40 mg PO HS #30 tab Continue Aspirin EC [Ecotrin Low Dose] 81 mg PO HS amLODIPine [Norvasc] 10 mg PO HS Losartan Potassium 50 mg PO HS Discharge Medication List Aspirin EC [Ecotrin Low Dose] 81 mg PO HS 11/06/23 [History] Losartan Potassium 50 mg PO HS 11/06/23 [History] amLODIPine [Norvasc] 10 mg PO HS 11/06/23 [History] Atorvastatin [Lipitor] 40 mg PO HS #30 tab 12/22/24 [Rx] Follow up Appointment(s)/Referral(s): Alonzo Gorman DO [Doctor of Osteopathic Medicine] - 1 Week (Orthopedic surgeon ) Orville Brown MD [Primary Care Provider] - 1-2 days Patient Instructions/Handouts: Chest Pain (DC), Paresthesia (GEN) Activity/Diet/Wound Care/Special Instructions: Follow up with orthopedic spinal surgery on discharge - Clear to go from a neurological stand point Activity limited until follow It is recommending to begin statin therapy on discharge; script has been sent in Discharge Disposition: HOME SELF-CARE
== END 2024-12-22 15:40 | disposition home or self-care (01) ==
LOC: EC 22:20 → 6NMEDSUR 12-20 01:04
PROVIDERS: ADMIT Hospitalist; ATTEND Hospitalist
DX: R07.2 Precordial pain (principal); R20.2 Paresthesia of skin; R20.0 Anesthesia of skin; M50.31 Other cervical disc degeneration, high cervical region; I10 Essential (primary) hypertension; E78.5 Hyperlipidemia, unspecified; Z87.891 Personal history of nicotine dependence; Z79.82 Long term (current) use of aspirin; Z79.899 Other long term (current) drug therapy; Z88.0 Allergy status to penicillin
CPT/HCPCS: 96372 ×2; 99285; 36415; 93005; 97161; 97165; 83880; 80061; 80053 ×2; 83605; 83735 ×2; 84100 ×2; 84484 ×2; 85025 ×2; 85610; 85730; 81003; 93880; 70450; 71275; 74177; 70551; 72141; G0378 ×3; J1650 ×2; Q9967